=== PATIENT | male | born 1990 ===

== ENCOUNTER 2019-07-06 13:02 | Inpatient (IN) | payer SELFPAY ==
[~2019-07-06] VITALS: Ht 157.4 cm; Wt 93.0 kg
[2019-07-06] MEDS ORDERED: ACETAMINOPHEN 500 MG TAB (TYLENOL) PO ONE (13:30)
[2019-07-06] MEDS ORDERED: IBUPROFEN 800 MG (MOTRIN) TAB PO ONE (13:30)
[2019-07-06] MEDS ORDERED: LIDOCAINE 1% INJ 20 ML 20 ML VIAL INJ ONE (13:45)
[2019-07-06] MEDS ORDERED: NS IV 1000 ML 1,000 ML IV SCH (13:45)
[2019-07-06 13:53] LABS: BASOPHILS # (AUTO) 0.1 10^3/uL (0.0-0.1); BASOPHILS % (AUTO) 0 % (0-10); EOSINOPHILS % (AUTO) 0 % (0-10); HEMATOCRIT 42 % (40-54); HEMOGLOBIN 14.3 G/DL (13.3-17.7); LYMPHOCYTES # (AUTO) 2.8 X 10^3 (1.0-4.0); LYMPHOCYTES % (AUTO) 10 % (12-44); MEAN CORPUSCULAR HEMOGLOBIN 31 PG (25-34); MEAN CORPUSCULAR HGB CONC 34 G/DL (32-36); MEAN CORPUSCULAR VOLUME 91 FL (80-99); MEAN PLATELET VOLUME 11.9 FL (7.4-10.4); MONOCYTES % (AUTO) 8 % (0-12); NEUTROPHILS % (AUTO) 82 % (42-75); PLATELET COUNT 221 10^3/uL (130-400); RED CELL DISTRIBUTION WIDTH 12.8 % (10.0-14.5); WHITE BLOOD COUNT 26.9 10^3/uL (4.3-11.0)
[2019-07-06 14:00] LABS: BUN/CREATININE RATIO 11; CALCIUM 9.6 MG/DL (8.5-10.1); CARBON DIOXIDE 22 MMOL/L (21-32); CHLORIDE 101 MMOL/L (98-107); CREATININE SERUM 0.98 MG/DL (0.60-1.30); GFR ESTIMATED > 60; GLUCOSE 101 MG/DL (70-105); POTASSIUM 3.7 MMOL/L (3.6-5.0); SODIUM 135 MMOL/L (135-145)
--- NOTE | 2019-07-06 14:02 | ED General ---
General Chief Complaint: Cough/Cold/Flu Symptoms Stated Complaint: FLU LIKE SYMPTOMS Nursing Triage Note: fever and cough for two days also left elbow pain and abscess Nursing Sepsis Screen: No Definite Risk Source of Information: Patient Exam Limitations: No Limitations History of Present Illness Date Seen by Provider: Jul 06, 2019 Time Seen by Provider: 13:30 Initial Comments Otherwise healthy 28-year-old male with no local physician presents to ER with reports of high fever runny nose sore throat and body aches cough that began yesterday. He also developed some posterior left elbow swelling redness and pain yesterday. He denies any antecedent injury. He has not traveled outside the [facility]. Timing/Duration: 1-2 Days Severity: Moderate Modifying Factors: worse with Movement Associated Systoms: Cough, Fever/Chills, Headaches Allergies and Home Medications Allergies Coded Allergies: No Known Drug Allergies (Unverified , 07/06/19) Patient Home Medication List Home Medication List Reviewed: Yes Review of Systems Review of Systems Constitutional: see HPI, chills, fever, weakness EENTM: see HPI, throat pain Respiratory: see HPI, cough Cardiovascular: no symptoms reported Genitourinary: no symptoms reported Musculoskeletal: no symptoms reported Skin: see HPI Psychiatric/Neurological: No Symptoms Reported Hematologic/Lymphatic: No Symptoms Reported Immunological/Allergic: no symptoms reported Past Tczjxee-Oiavye-Sbdfnu Hx Patient Social History Recent Foreign Travel: No Contact w/Someone Who Travel: No Recent Infectious Disease Expo: No Physical Exam Vital Signs Vital Signs - First Documented 07/06/19 13:17 Temp 39.4 Pulse 109 Resp 22 B/P (MAP) 134/75 (94) Pulse Ox 96 O2 Delivery Room Air Capillary Refill : Less Than 3 Seconds Height, Weight, BMI Height: '" Weight: lbs. oz. kg; 37.00 BMI Method: General Appearance: No Apparent Distress, WD/WN Eyes: Bilateral Eye Normal Inspection, Bilateral Eye PERRL, Bilateral Eye EOMI HEENT: PERRL/EOMI, TMs Normal Neck: Full Range of Motion, Normal Inspection Respiratory: No Accessory Muscle Use, No Respiratory Distress Cardiovascular: Normal Peripheral Pulses, Tachycardia Gastrointestinal: Non Tender, Soft Extremity: Normal Capillary Refill, Normal Inspection, Other (swelling erythema and fluctuance with a small pustule to the olecranon process of the left elbow.Procedure note incision and drainage was done. Area was cleansed with chlorhexidine swabs, anesthetized locally with 2 mL of 1% lidocaine without epinephrine, incision was made with 11 blade scalpel, small amount of bloody material expressed. Culture collected and sent to lab. Covered with gauze and Coban.) Neurologic/Psychiatric: Alert, Oriented x3 Skin: Normal Color, Warm/Dry Focused Exam Lactate Level 07/06/19 13:37: Lactic Acid Level 1.04 Lactic Acid Level Progress/Results/Core Measures Suspected Sepsis Recent Fever Within 48 Hours: Yes Infection Criteria Present: None New/Unexplained Altered Menta: No Sepsis Screen: No Definite Risk SIRS Temperature: Pulse: 109 Respiratory Rate: 22 Laboratory Tests 07/06/19 13:37: White Blood Count 26.9H Blood Pressure 134 /75 Mean: 94 07/06/19 13:37: Lactic Acid Level 1.04 Laboratory Tests 07/06/19 13:37: Creatinine 0.98, Platelet Count 221 Results/Orders Lab Results Laboratory Tests Test 07/06/19 13:30 07/06/19 13:37 Range/Units Group A Streptococcus Screen NEGATIVE NEGATIVE White Blood Count 26.9 H 4.3-11.0 10^3/uL Red Blood Count 4.61 4.35-5.85 10^6/uL Hemoglobin 14.3 13.3-17.7 G/DL Hematocrit 42 40-54 % Mean Corpuscular Volume 91 80-99 FL Mean Corpuscular Hemoglobin 31 25-34 PG Mean Corpuscular Hemoglobin Concent 34 32-36 G/DL Red Cell Distribution Width 12.8 10.0-14.5 % Platelet Count 221 130-400 10^3/uL Mean Platelet Volume 11.9 H 7.4-10.4 FL Neutrophils (%) (Auto) 82 H 42-75 % Lymphocytes (%) (Auto) 10 L 12-44 % Monocytes (%) (Auto) 8 0-12 % Eosinophils (%) (Auto) 0 0-10 % Basophils (%) (Auto) 0 0-10 % Neutrophils # (Auto) 22.0 H 1.8-7.8 X 10^3 Lymphocytes # (Auto) 2.8 1.0-4.0 X 10^3 Monocytes # (Auto) 2.0 H 0.0-1.0 X 10^3 Eosinophils # (Auto) 0.0 0.0-0.3 10^3/uL Basophils # (Auto) 0.1 0.0-0.1 10^3/uL Neutrophils % (Manual) 78 % Lymphocytes % (Manual) 11 % Monocytes % (Manual) 8 % Eosinophils % (Manual) 0 % Basophils % (Manual) 0 % Band Neutrophils 3 % Blood Morphology Comment NORMAL Sodium Level 135 135-145 MMOL/L Potassium Level 3.7 3.6-5.0 MMOL/L Chloride Level 101 98-107 MMOL/L Carbon Dioxide Level 22 21-32 MMOL/L Anion Gap 12 5-14 MMOL/L Blood Urea Nitrogen 11 7-18 MG/DL Creatinine 0.98 0.60-1.30 MG/DL Estimat Glomerular Filtration Rate > 60 BUN/Creatinine Ratio 11 Glucose Level 101 70-105 MG/DL Lactic Acid Level 1.04 0.50-2.00 MMOL/L Calcium Level 9.6 8.5-10.1 MG/DL Micro Results Microbiology 07/06/19 Influenza Types A,B Antigen (TORIBIO) - Final, Complete My Orders Orders - KOTA GREENE COMPOSITE BOND TECHNICIAN Cbc With Automated Diff (07/06/19 13:25) Basic Metabolic Panel (07/06/19 13:25) Influenza A And B Antigens (07/06/19 13:25) Ibuprofen Tablet (Motrin Tablet) (07/06/19 13:30) Acetaminophen Tablet (Tylenol Tablet) (07/06/19 13:30) Chest 1 View, Ap/Pa Only (07/06/19 13:26) Rapid Strep A Screen (07/06/19 13:26) Lidocaine 1% Inj 20 Ml (Xylocaine 1% Inj (07/06/19 13:45) Wound Culture (07/06/19 13:32) Ns Iv 1000 Ml (Sodium Chloride 0.9%) (07/06/19 13:45) Lactic Acid Analyzer (07/06/19 13:39) Manual Differential (07/06/19 13:37) Fentanyl Injection (Sublimaze Injection (07/06/19 14:15) Blood Culture (07/06/19 14:05) Cefazolin 2 Gm/50 Ml Ns (Ancef 2 Gm/50 M (07/06/19 14:30) Medications Given in ED Current Medications Medications Dose Ordered Sig/Gloria Route Start Time Stop Time Status Last Admin Dose Admin Acetaminophen 1,000 mg ONCE ONCE PO 07/06/19 13:30 07/06/19 13:31 DC 07/06/19 13:40 1,000 MG Cefazolin Sodium 50 ml @ 100 mls/hr ONCE ONCE IV 07/06/19 14:30 07/06/19 14:59 DC 07/06/19 15:01 100 MLS/HR Fentanyl Citrate 50 mcg ONCE ONCE IVP 07/06/19 14:15 07/06/19 14:16 DC 07/06/19 14:19 50 MCG Ibuprofen 800 mg ONCE ONCE PO 07/06/19 13:30 07/06/19 13:31 DC 07/06/19 13:40 800 MG Lidocaine HCl 20 ml ONCE ONCE INJ 07/06/19 13:45 07/06/19 13:46 DC 07/06/19 13:46 20 ML Vital Signs/I&O 07/06/19 07/06/19 07/06/19 07/06/19 13:17 13:37 13:40 13:40 Temp 39.4 39.4 39.4 Pulse 109 Resp 22 B/P (MAP) 134/75 (94) Pulse Ox 96 O2 Delivery Room Air Room Air 07/06/19 07/06/19 07/06/19 07/06/19 14:30 15:45 16:12 16:13 Temp 39.4 38.3 37.2 37.2 Pulse 109 84 84 84 Resp 22 22 20 20 B/P (MAP) 134/75 114/61 (94) 110/69 (83) 110/69 Pulse Ox 96 96 99 99 O2 Delivery Room Air Room Air Room Air Capillary Refill : Less Than 3 Seconds Blood Pressure Mean: 94 Diagnostic Imaging Diagonstic Imaging: CT Comments NAME: LOUISE JENNINGS [facility] REC#: [id number] PT STATUS: REG ER : 1990 PHYSICIAN: KOTA GREENE APRN ADMIT DATE: 07/06/19/ER Draft Date of Exam:07/06/19 CHEST 1 VIEW, AP/PA ONLY INDICATION: Fever and cough COMPARISON: None FINDINGS: Single frontal view of the chest demonstrates normal heart size and pulmonary vascularity. The lungs show low inspiratory volumes, but are otherwise clear. No large pleural effusion or pneumothorax is seen. The visualized osseous structures show no acute abnormalities. IMPRESSION: 1. Low lung volumes, but otherwise no acute cardiopulmonary process. Dictated on workstation # [id number] Dict: 07/06/19 1412 Trans: 07/06/19 1414 [facility] [id number] Interpreted by: JAYLENE COLIN MD Electronically signed by: Departure Communication (Admissions) Time/Spoke to Admitting Phy: 14:[address] jones, we'll admit and consult Dr. Rodriguez. I spoke with Dr. Johnson, agrees to consult. Impression Primary Impression: Cellulitis of left elbow Additional Impressions: Influenza-like symptoms Sepsis Disposition: ADMITTED INPATIENT Condition: Stable Admissions Decision to Admit Reason: Admit from ER (General) Decision to Admit/Date: Jul 06, 2019 Time/Decision to Admit Time: 14:14 KOTA GREENE APRN Jul 06, 2019 14:02
--- NOTE | 2019-07-06 14:14 | Diagnostic Imaging Report ---
INDICATION: Fever and cough COMPARISON: None FINDINGS: Single frontal view of the chest demonstrates normal heart size and pulmonary vascularity. The lungs show low inspiratory volumes, but are otherwise clear. No large pleural effusion or pneumothorax is seen. The visualized osseous structures show no acute abnormalities. IMPRESSION: 1. Low lung volumes, but otherwise no acute cardiopulmonary process. Dictated by: Dictated on workstation # [id number]
[2019-07-06] MEDS ORDERED: fentaNYL INJECTION 100 MCG/2 ML AMP IVP ONE (14:15)
[2019-07-06 14:17] LABS: BAND NEUTROPHILS 3 %; BASOPHILS % (MANUAL) 0 %; EOSINOPHILS % (MANUAL) 0 %; LYMPHOCYTES % (MANUAL) 11 %; MONOCYTES % (MANUAL) 8 %; NEUTROPHILS % (MANUAL) 78 %; RBC MORPH NORMAL
[2019-07-06] MEDS ORDERED: ceFAZolin 2 GM/50 ML NS 50 ML IV ONE (14:30)
--- NOTE | 2019-07-06 15:53 | NUR ---
LOUISE JENNINGS admitted to room 432-1, with an admitting diagnosis of CELLULITIS OF THE LEFT ELBOW AND SEPSIS, on 07/06/19 from ER via W//C, accompanied by ED PCT. LOUISE JENNINGS introduced to surroundings, call light, bed controls, phone, TV, temperature control, lights, meal times, smoking policy, visitor policy, side rail policy, bathrooms and showers. Patient Rights given to patient in the handbook. LOUISE JENNINGS verbalizes understanding that [facility] is not responsible for the loss or damage to any personal effects or valuables that are kept in the patients posession during their hospitalization. LOUISE JENNINGS verbalizes understanding of Interdisciplinary Patient Education. Patient and/or family were informed about the Rapid Response Team and its purpose.
--- NOTE | 2019-07-06 15:53 | NUR ---
PATIENT TO FLOOR AT THIS TIME VIA W/C ACCOMPANIED BY ED PCT.
[2019-07-06 16:12] VITALS: BP 110/69
[2019-07-06 16:13] VITALS: BP 110/69
--- NOTE | 2019-07-06 16:17 | NUR ---
CR 0.98; CR CL > 80; WT 93 KG; VANCO 2000 MG IV BOLUS THEN 1250 MG IV Q12H; TROUGH AFTER 3RD DOSE
--- NOTE | 2019-07-06 16:28 | Progress Note ---
Standard Progress Note Progress Notes/Assess & Plan Date Seen by a Provider: Jul 06, 2019 Time Seen by a Provider: 16:27 Progress/Assessment & Plan patient seen and examined consult dictated findings c/w left olecranon septic bursitis rec abx no need for surgical intervention currently Focused Exam Lactate Level 07/06/19 13:37: Lactic Acid Level 1.04 Lactic Acid Level Laboratory Tests Test 07/06/19 13:37 Lactic Acid Level 1.04 MMOL/L (0.50-2.00) HELENA PEREZ MD Jul 06, 2019 16:28
[2019-07-06] MEDS ORDERED: VANCOMYCIN 2000 MG/NS 500 ML IVPB IV NR ×2 (16:30)
[2019-07-06] MEDS ORDERED: ONDANSETRON 4 MG/2 ML (SDV) Z0FRAN IV PRN (16:30)
[2019-07-06] MEDS: NS IV 1000 ML 1,000 ML IV SCH (16:53)
--- NOTE | 2019-07-06 18:44 | CONSULTATION REPORT ---
DATE OF SERVICE: REASON FOR CONSULTATION: Left olecranon bursitis. HISTORY OF PRESENT ILLNESS: The patient is a 28-year-old right hand dominant gentleman who has been having systemic illness and noticed yesterday that he had some redness in the posterior aspect of his left elbow. 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 He was found in the Emergency Department today to have findings consistent with septic bursitis. This underwent local irrigation and drainage and cultures were obtained. He was started on vancomycin and Ancef. He denies prior similar episodes. He reports posterior pain. He reports it is better since the time of the incision and drainage in the Emergency Department. PHYSICAL EXAMINATION: The left elbow demonstrates near full range of motion actively with only pain elicited posteriorly. He has no pain with supination and pronation of the forearm. There is at the olecranon area erythema, no purulence was expressed. There is some fluctuance noted. No elbow effusion is noted. IMPRESSION: Left elbow septic olecranon bursitis. PLAN: Antibiotics. This will typically respond to antibiotics without requiring formal surgical irrigation and debridement. We will follow while admitted. Thank you for the consultation. Job ID: [id number] DocumentID: [id number] Dictated Date: 07/06/2019 16:26:13 Home Stereo Equipment Installer Date: 07/06/2019 18:43:55 Dictated By: HELENA PEREZ MD
[2019-07-06] MEDS ORDERED: diphenhydrAMINE 25 MG TAB (BENADRYL) PO PRN (19:45)
[2019-07-06 20:00] VITALS: BP 115/71
[2019-07-06] MEDS: ACETAMINOPHEN 325 MG TABLET PO PRN (20:00)
--- NOTE | 2019-07-06 20:00 | NUR ---
PT CALLED TO THE ROOM AND C/O ITCHINESS IN THE FACE, BACK OF THE HEAD AND "FEEL LIKE MY LIPS ARE SWELLING." REDNESS NOTICED IN FOREHEAD AND A LITTLE BIT OF SWELLING ON THE BOTTOM LIP. VS WITHIN NORMAL LIMITS. SEE VITAL SIGNS HX. DR CUETO NOTIFIED AND NEW ORDERS RECEIVED TO HOLD VANCOMYCIN AND TO GIVE BENADRYL 25 MG PO NOW.
[2019-07-06] MEDS: ceFAZolin 2 GM/NS 50 ML (COMPOUNDED) IV SCH (22:33)
[2019-07-06] MEDS: IBUPROFEN 800 MG (MOTRIN) TAB PO PRN (22:35)
[2019-07-07 00:05] VITALS: BP 116/75
[2019-07-07] MEDS: NS IV 1000 ML 1,000 ML IV SCH ×3 (03:13→19:34)
[2019-07-07 04:00] VITALS: BP 119/72
[2019-07-07 04:42] LABS: BASOPHILS % (AUTO) 0 % (0-10); EOSINOPHILS # (AUTO) 0.4 10^3/uL (0.0-0.3); EOSINOPHILS % (AUTO) 1 % (0-10); HEMATOCRIT 40 % (40-54); HEMOGLOBIN 13.2 G/DL (13.3-17.7); LYMPHOCYTES # (AUTO) 1.7 X 10^3 (1.0-4.0); LYMPHOCYTES % (AUTO) 6 % (12-44); MEAN CORPUSCULAR HEMOGLOBIN 31 PG (25-34); MEAN CORPUSCULAR HGB CONC 33 G/DL (32-36); MEAN CORPUSCULAR VOLUME 93 FL (80-99); MONOCYTES # (AUTO) 1.1 X 10^3 (0.0-1.0); MONOCYTES % (AUTO) 4 % (0-12); NEUTROPHILS # (AUTO) 24.1 X 10^3 (1.8-7.8); NEUTROPHILS % (AUTO) 88 % (42-75); PLATELET COUNT 174 10^3/uL (130-400); RED CELL DISTRIBUTION WIDTH 13.2 % (10.0-14.5); WHITE BLOOD COUNT 27.3 10^3/uL (4.3-11.0)
[2019-07-07 05:00] LABS: ALANINE AMINOTRANSFERASE 97 U/L (0-55); ALBUMIN 3.7 GM/DL (3.2-4.5); ALKALINE PHOSPHATASE 79 U/L (40-136); BILIRUBIN,TOTAL 1.5 MG/DL (0.1-1.0); BUN/CREATININE RATIO 11; CALCIUM 8.8 MG/DL (8.5-10.1); CARBON DIOXIDE 19 MMOL/L (21-32); CHLORIDE 109 MMOL/L (98-107); CREATININE SERUM 0.79 MG/DL (0.60-1.30); GFR ESTIMATED > 60; GLUCOSE 96 MG/DL (70-105); POTASSIUM 3.6 MMOL/L (3.6-5.0); SODIUM 139 MMOL/L (135-145); TOTAL PROTEIN 6.7 GM/DL (6.4-8.2)
[2019-07-07] MEDS ORDERED: VANCOMYCIN 1250 MG/NS 250 ML IVPB IV SCH ×2 (05:00)
[2019-07-07] MEDS: ceFAZolin 2 GM/NS 50 ML (COMPOUNDED) IV SCH ×3 (06:43→22:59)
--- NOTE | 2019-07-07 07:43 | Diagnostic Imaging Report ---
EXAM: CHEST 1 VIEW, AP/PA ONLY INDICATION: Sepsis. COMPARISON: 07/06/2019. FINDINGS: Normal heart size and central pulmonary vascularity. Low lung volumes with perihilar atelectasis. No pleural effusion or pneumothorax. No acute osseous findings. No significant change. IMPRESSION: Low lung volumes with perihilar atelectasis. Chest otherwise unremarkable. Dictated by: Dictated on workstation # [id number]
[2019-07-07 08:00] VITALS: BP 121/80
[2019-07-07] MEDS: ACETAMINOPHEN 325 MG TABLET PO PRN ×2 (09:24→20:51)
[2019-07-07] MEDS: IBUPROFEN 800 MG (MOTRIN) TAB PO PRN ×2 (11:12→19:35)
[2019-07-07 12:00] VITALS: BP 114/58
[2019-07-07] MEDS: HYDROcodone/APAP 5 MG/325 MG (LORTAB) TAB PO PRN (13:19)
--- NOTE | 2019-07-07 13:53 | Progress Note ---
Standard Progress Note Progress Notes/Assess & Plan Date Seen by a Provider: Jul 07, 2019 Time Seen by a Provider: 13:52 Progress/Assessment & Plan patient seen and examined consult dictated findings c/w left olecranon septic bursitis rec abx no need for surgical intervention currently Final Diagnosis feeling better cxs--MSSA Vanco DCed L elbow with less fluctuance at bursa ROM improved resolving septic olecranon bursitis cont abx Focused Exam Lactate Level 07/06/19 13:37: Lactic Acid Level 1.04 HELENA PEREZ MD Jul 07, 2019 13:53
--- NOTE | 2019-07-07 14:55 | History & Physical-Hospitalist ---
History of Present Illness HPI/Chief Complaint Pt is a 27yoCM who presented to the ER due to fever and cough. He was found to have a left olecranon bursitis and this was drain in the ER. He reports that he is feeling better today but still having fevers. He still have pain in his elbow but this has improved as well. Date Seen 07/07/19 Time Seen by a Provider: 11:30 Attending Physician Maye Bahena MD PCP No,Local Physician Referring Physician Date of Admission Jul 06, 2019 at 14:30 Home Medications & Allergies Home Medications Reviewed patient Home Medication Reconciliation performed by pharmacy medication reconciliations photo equipment technician and/or nursing. Patients Allergies have been reviewed. Allergies Allergies Coded Allergies No Known Drug Allergies (Unverified07/06/19) Past Ebuulsb-Sagbvb-Hzclro Hx Past Med/Social Hx: Reviewed Nursing Past Med/Soc Hx Patient Social History Alcohol Use: Denies Use Recreational Drug Use: No Smoking Status: Unknown if Ever Smoked Recent Foreign Travel: No Contact w/other who traveled: No Recent Infectious Disease Expo: No Family History Reviewed Nursing Family Hx Patient reports no known family medical history. Review of Systems Constitutional: fever Respiratory: cough; No hemoptysis, No phlegm Cardiovascular: No chest pain Gastrointestinal: No abdominal pain, No constipation, No diarrhea, No nausea, No vomiting Musculoskeletal: see HPI Skin: no symptoms reported Psychiatric/Neurological: No Symptoms Reported Physical Exam Physical Exam Vital Signs Vital Signs - First Documented 07/06/19 13:17 Temp 39.4 Pulse 109 Resp 22 B/P (MAP) 134/75 (94) Pulse Ox 96 O2 Delivery Room Air Capillary Refill : Less Than 3 Seconds Height, Weight, BMI Height: '" Weight: lbs. oz. kg; 37.53 BMI Method: General Appearance: No Apparent Distress, WD/WN, Obese HEENT: Moist Mucous Membranes; No Scleral Icterus (L), No Scleral Icterus (R) Neck: Normal Inspection, Supple Respiratory: Lungs Clear, No Accessory Muscle Use, No Respiratory Distress Cardiovascular: Regular Rate, Rhythm, No Murmur Gastrointestinal: Normal Bowel Sounds, Non Tender, Soft Extremity: No Calf Tenderness, No Pedal Edema, Swelling (of left elbow, no drainage, erythema noted slightly outside of demarcation) Neurologic/Psychiatric: Alert, Oriented x3, Normal Mood/Affect Results Results/Procedures Labs Laboratory Tests 07/09/19 06:40 07/10/19 05:27 Patient resulted labs reviewed. Imaging: Reviewed Imaging Report Imaging Date of Exam:07/07/19 CHEST 1 VIEW, AP/PA ONLY EXAM: CHEST 1 VIEW, AP/PA ONLY INDICATION: Sepsis. COMPARISON: 07/06/2019. FINDINGS: Normal heart size and central pulmonary vascularity. Low lung volumes with perihilar atelectasis. No pleural effusion or pneumothorax. No acute osseous findings. No significant change. IMPRESSION: Low lung volumes with perihilar atelectasis. Chest otherwise unremarkable. Assessment/Plan Admission Diagnosis Sepsis Admission Status: Inpatient Order (span 2 midnights) Reason for Inpatient Admission: Needs IV abx Assessment and Plan Sepsis Septic olecranon bursitis Fever curve trending down Continue Rocephin Vanc DC-ed due to reaction overnight Cultures growing staph and strep- awaiting sensitivities but presumptive MSSA Diagnosis/Problems Diagnosis/Problems (1) Sepsis Status: Acute Qualifiers: Sepsis type: methicillin susceptible Staphylococcus aureus Sepsis acute organ dysfunction status: without acute organ dysfunction Qualified Codes: A41.01 - Sepsis due to methicillin susceptible Staphylococcus aureus (2) Cellulitis of left elbow Status: Acute Clinical Quality Measures DVT/VTE Risk/Contraindication: Risk Factor Score Per Nursin RFS Level Per Nursing on Admit: 4+=Very High MAYE BAHENA MD Jul 07, 2019 14:55
[2019-07-07] MEDS: ENOXAPARIN 40 MG/0.4 ML (LOVENOX) SYR SQ SCH (15:45)
[2019-07-07 15:47] VITALS: BP 114/61
[2019-07-07] MEDS: CHLORASEPTIC LOZENGE MM PRN (19:35)
[2019-07-07 19:46] VITALS: BP 125/74
[2019-07-07] MEDS ORDERED: KETOROLAC 30 MG/ML VIAL IVP ONE (22:30)
[2019-07-08 00:45] VITALS: BP 115/66
[2019-07-08] MEDS ORDERED: TROUGH ORDER-PHARMACY XX NR (04:00)
[2019-07-08 04:31] VITALS: BP 100/65
[2019-07-08] MEDS: NS IV 1000 ML 1,000 ML IV SCH (05:31)
[2019-07-08] MEDS: ceFAZolin 2 GM/NS 50 ML (COMPOUNDED) IV SCH (06:02)
[2019-07-08] MEDS: HYDROcodone/APAP 5 MG/325 MG (LORTAB) TAB PO PRN (06:03)
[2019-07-08 06:57] LABS: HEMOGLOBIN 12.1 G/DL (13.3-17.7); MEAN PLATELET VOLUME 12.2 FL (7.4-10.4); RED CELL DISTRIBUTION WIDTH 13.3 % (10.0-14.5); WHITE BLOOD COUNT 24.7 10^3/uL (4.3-11.0)
[2019-07-08 07:16] LABS: BUN/CREATININE RATIO 9; CALCIUM 8.6 MG/DL (8.5-10.1); CARBON DIOXIDE 19 MMOL/L (21-32); CHLORIDE 108 MMOL/L (98-107); CREATININE SERUM 0.78 MG/DL (0.60-1.30); GFR ESTIMATED > 60; GLUCOSE 99 MG/DL (70-105); POTASSIUM 3.7 MMOL/L (3.6-5.0); SODIUM 137 MMOL/L (135-145)
--- NOTE | 2019-07-08 07:58 | Progress Note ---
Standard Progress Note Progress Notes/Assess & Plan Date Seen by a Provider: Jul 08, 2019 Time Seen by a Provider: 07:57 Progress/Assessment & Plan patient seen and examined consult dictated findings c/w left olecranon septic bursitis rec abx no need for surgical intervention currently Final Diagnosis feeeling better, but reports increased erythema currently afebrile Laboratory Tests Test 07/08/19 06:37 Range/Units White Blood Count 24.7 H 4.3-11.0 10^3/uL Red Blood Count 3.97 L 4.35-5.85 10^6/uL Hemoglobin 12.1 L 13.3-17.7 G/DL Hematocrit 37 L 40-54 % Mean Corpuscular Volume 94 80-99 FL Mean Corpuscular Hemoglobin 30 25-34 PG Mean Corpuscular Hemoglobin Concent 32 32-36 G/DL Red Cell Distribution Width 13.3 10.0-14.5 % Platelet Count 155 130-400 10^3/uL Mean Platelet Volume 12.2 H 7.4-10.4 FL Sodium Level 137 135-145 MMOL/L Potassium Level 3.7 3.6-5.0 MMOL/L Chloride Level 108 H 98-107 MMOL/L Carbon Dioxide Level 19 L 21-32 MMOL/L Anion Gap 10 5-14 MMOL/L Blood Urea Nitrogen 7 7-18 MG/DL Creatinine 0.78 0.60-1.30 MG/DL Estimat Glomerular Filtration Rate > 60 BUN/Creatinine Ratio 9 Glucose Level 99 70-105 MG/DL Calcium Level 8.6 8.5-10.1 MG/DL Left elbow without fluctuance but increased erythema. ROM unchanged imp--cellulitis left elbow continue abx. no need for operative intervention currently Focused Exam Lactate Level 07/06/19 13:37: Lactic Acid Level 1.04 HELENA PEREZ MD Jul 08, 2019 07:58
[2019-07-08 08:00] VITALS: BP 120/75
[2019-07-08] MEDS: IBUPROFEN 800 MG (MOTRIN) TAB PO PRN ×2 (09:24→21:42)
[2019-07-08] MEDS: CHLORASEPTIC LOZENGE MM PRN (10:36)
--- NOTE | 2019-07-08 11:59 | Progress Note - Hospitalist ---
Subjective HPI/CC On Admission Date Seen by Provider: Jul 08, 2019 Time Seen by Provider: 11:56 Pt is a 27yoCM who presented to the ER due to fever and cough. He was found to have a left olecranon bursitis and this was drain in the ER. He reports that he is feeling better today but still having fevers. He still have pain in his elbow but this has improved as well. Subjective/Events-last exam Pt reports feeling about the same. Fever overnight. Erythema worsening. Plan to change antibiotics. Focused Exam Lactate Level 07/06/19 13:37: Lactic Acid Level 1.04 Objective Exam Vital Signs Vital Signs Date Time Temp Pulse Resp B/P (MAP) Pulse Ox O2 Delivery O2 Flow Rate FiO2 07/08/19 10:40 37.8 07/08/19 09:00 99 Room Air 07/08/19 08:00 74 20 120/75 (90) Capillary Refill : Less Than 3 Seconds General Appearance: No Apparent Distress, WD/WN, Obese Respiratory: No Accessory Muscle Use, No Respiratory Distress Extremity: Other (left elbow with worsening erythema and warmth) Neurologic/Psychiatric: Alert, Oriented x3, Normal Mood/Affect Results/Procedures Lab Laboratory Tests 07/08/19 06:37 Patient resulted labs reviewed. Imaging: Reviewed Imaging Report Assessment/Plan Assessment and Plan Assess & Plan/Chief Complaint Sepsis Septic olecranon bursitis Still having fevers Change from ancef to Rocephin given clinical presentation Cultures growing staph and strep- awaiting sensitivities but presumptive MSSA Ortho consulted, appreciate recs Diagnosis/Problems Diagnosis/Problems (1) Sepsis Status: Acute Qualifiers: Sepsis type: methicillin susceptible Staphylococcus aureus Sepsis acute organ dysfunction status: without acute organ dysfunction Qualified Codes: A41.01 - Sepsis due to methicillin susceptible Staphylococcus aureus (2) Cellulitis of left elbow Status: Acute Clinical Quality Measures DVT/VTE Risk/Contraindication: Risk Factor Score Per Nursin RFS Level Per Nursing on Admit: 4+=Very High MAYE LOPEZ MD Jul 08, 2019 11:59
[2019-07-08 12:00] VITALS: BP 106/65
[2019-07-08] MEDS: cefTRIAXone FOR IV USE 2,000 MG in WATER (STERILE) FOR INJECTION 20 ML IV SCH (12:28)
[2019-07-08] MEDS: ENOXAPARIN 40 MG/0.4 ML (LOVENOX) SYR SQ SCH (14:53)
[2019-07-08] MEDS ORDERED: ceFAZolin 2 GM IV Premixed 50 ML IV SCH (15:00)
--- OUTSIDE RECORDS SUMMARY | 2019-07-08 16:39 | XMS REPORT | Continuity of Care Document ---
Author Organization Unknown Address Unknown Phone Unavailable Allergies Active Description Code Type Severity Reaction Onset Reported/Identified Relationship to Patient Clinical Status Yes No Known Drug Allergies [id number] Drug Allergy Unknown N/A 07/06/2019 Medications There is no data. Problems Date Dx Coded Attending Type Code Diagnosis Diagnosed By 07/07/2019 MAYE LOPEZ MD, Ot A41. 9 SEPSIS, UNSPECIFIED ORGANISM 07/07/2019 MAYE LOPEZ MD Ot M71.022 ABSCESS OF BURSA, LEFT ELBOW 07/07/2019 MAYE LOPEZ MD Ot M71.122 OTHER INFECTIVE BURSITIS, LEFT ELBOW 07/07/2019 MAYE LOPEZ MD Ot R05 COUGH 07/07/2019 MAYE LOPEZ MD, Ot A41. 9 SEPSIS, UNSPECIFIED ORGANISM 07/07/2019 MAYE LOPEZ MD Ot M71.022 ABSCESS OF BURSA, LEFT ELBOW 07/07/2019 MAYE LOPEZ MD Ot M71.122 OTHER INFECTIVE BURSITIS, LEFT ELBOW 07/07/2019 MAYE LOPEZ MD Ot R05 COUGH Procedures Code Description Performed By Per formed On [id number] DR WOOD OF LEFT ELBOW BURSA AND LIGAMEN 07/06/2019 Results Test Result Range Streptococcus pyogenes antigen detection - 07/06/19 13:30 Streptococcus pyogenes antigen detection NEGATIVE NEGATIVE Influenza virus A and B antigen detectio n - 07/06/19 13:30 FLU RESULT NEGATIVE FOR INFLUENZA A AND B ANTIGENS BY IA NRG Bacterial throat culture - 07/06/19 13:3 0 Bacterial throat culture [id number] NRG FREE TEXT EXTERNAL PLUS NORMAL RUPERTO NR G QUANTITY OF GROWTH Scant Growth NRG Complete blood count (CBC) with automate d white blood cell (WBC) differential - 07/06/19 13:37 Blood leukocytes automated count (number/volume) 26.9 10*3/uL 4.3-11.0 Blood erythrocytes automated count (number/volume) 4.61 10*6/uL 4.35-5.85 Venous blood hemoglobin measurement (mass/volume) 14.3 g/dL 13.3-17.7 Blood hematocrit (volume fraction) 42 % 40-54 Automated erythrocyte mean corpuscular volume 91 [ foz_us] 80-99 Automated erythrocyte mean corpuscular h emoglobin (mass per erythrocyte) 31 pg 25-34 Automated erythrocyte mean corpuscular h emoglobin concentration measurement (mass/volume) 34 g/dL 32-36 Automated erythrocyte distribution width ratio 12. 8 % 10.0- 14.5 Automated blood platelet count (count/volume) 221 10*3/uL 130-400 Automated blood platelet mean volume measurement 11.9 [foz_us] 7.4-10.4 Automated blood neutrophils/100 leukocytes 82 % 42-75 Automated blood lymphocytes/100 leukocytes 10 % 12-44 Blood monocytes/100 leukocytes 8 % 0-12 Automated blood eosinophils/100 leukocytes 0 % 0-10 Automated blood basophils/100 leukocytes 0 % 0-10 Blood neutrophils automated count (number/volume) 22.0 10*3 1.8-7.8 Blood lymphocytes automated count (number/volume) 2.8 10*3 1.0-4.0 Blood monocytes automated count (number/volume) 2. 0 10*3 0.0-1.0 Automated eosinophil count 0.0 10*3/uL 0 .0-0.3 Automated blood basophil count (count/volume) 0.1 10*3/uL 0.0-0.1 Blood lactic acid measurement (moles/vol ume) - 07/06/19 13:37 Blood lactic acid measurement (moles/volume) 1.04 mmol/L 0.50-2.00 Whole blood basic metabolic panel - 06/26 13:37 Serum or plasma sodium measurement (moles/volume) 135 mmol/L 135-145 Serum or plasma potassium measurement (moles/volume) 3.7 mmol/L 3.6-5.0 Serum or plasma chloride measurement (moles/volume) 101 mmol/L 98-107 Carbon dioxide 22 mmol/L 21-32 Serum or plasma anion gap determination (moles/volume) 12 mmol/L 5-14 Serum or plasma urea nitrogen measurement (mass/volume ) 11 mg/dL 7-18 Serum or plasma creatinine measurement (mass/volume) 0.98 mg/dL 0.60-1.30 Serum or plasma urea nitrogen/creatinine mass ratio 11 NRG Serum or plasma creatinine measurement w ith calculation of estimated glomerular filtration rate > NRG Serum or plasma glucose measurement (mass/volume) 101 mg/dL 70-105 Serum or plasma calcium measurement (mass/volume) 9.6 mg/dL 8.5-10.1 Manual absolute plasma cell count - 06/26 13:37 Blood monocytes/100 leukocytes 8 % NRG Manual blood segmented neutrophils/100 leukocytes 78 % NRG Blood band neutrophils/100 leukocytes 3 % NRG Manual blood lymphocytes/100 leukocytes 11 % NRG Manual eosinophils/100 leukocytes in nose 0 % NRG Manual blood basophils/100 leukocytes 0 % NRG Blood erythrocyte morphology finding identification NORMAL NRG Bacterial blood culture - 07/06/19 13:37 Bacterial blood culture NG NRG Gram stain microscopy - 07/06/19 13:52 Gram stain microscopy Moderate Gram positive cocci NRG Bacteria identification in wound by cult ure - 07/06/19 13:52 Bacteria identification in wound by culture [id number] NRG FREE TEXT EXTERNAL SUSCEPTIBILITY REPORTED 07/08/19 10:30 NRG QUANTITY OF GROWTH Moderate Growth NRG FREE TEXT ENTRY 2 PRELIM RAPID ID TEST AT [facility] 07/06 07:30 NRG FREE TEXT ENTRY 3 RML CONFIRMED ID 07/06 17:05 NRG FREE TEXT ENTRY 4 SEE COMMENTS NRG Dirithromycin susceptibility test by dis k diffusion - 07/06/19 13:52 Oxacillin susceptibility test by minimum inhibitory co ncentration 0.5 NRG Clindamycin susceptibility test by minimum inhibitory concentration <= NRG Erythromycin susceptibility test by minimum inhibitory concentration <= NRG Trimethoprim/sulfamethoxazole susceptibi lity test by minimum inhibitoryconcentration <= NRG Vancomycin susceptibility test by minimum inhibitory c oncentration 1 NRG Levofloxacin susceptibility test by minimum inhibitory concentration <= NRG Rifampin susceptibility test by minimum inhibitory con centration <= NRG Cefazolin susceptibility test by minimum inhibitory co ncentration <= NRG Linezolid susceptibility test by minimum inhibitory co ncentration 2 NRG Penicillin G susceptibility test by minimum inhibitory concentration > NRG Moxifloxacin susceptibility test by minimum inhibitory concentration <= NRG Minocycline susc TORIBIO <= NRG Bacterial blood culture - 07/06/19 14:26 Bacterial blood culture NG NRG Complete blood count (CBC) with automate d white blood cell (WBC) differential - 07/07/19 04:35 Blood leukocytes automated count (number/volume) 27.3 10*3/uL 4.3-11.0 Blood erythrocytes automated count (number/volume) 4.33 10*6/uL 4.35-5.85 Venous blood hemoglobin measurement (mass/volume) 13.2 g/dL 13.3-17.7 Blood hematocrit (volume fraction) 40 % 40-54 Automated erythrocyte mean corpuscular volume 93 [ foz_us] 80-99 Automated erythrocyte mean corpuscular h emoglobin (mass per erythrocyte) 31 pg 25-34 Automated erythrocyte mean corpuscular h emoglobin concentration measurement (mass/volume) 33 g/dL 32-36 Automated erythrocyte distribution width ratio 13. 2 % 10.0- 14.5 Automated blood platelet count (count/volume) 174 10*3/uL 130-400 Automated blood platelet mean volume measurement 12.0 [foz_us] 7.4-10.4 Automated blood neutrophils/100 leukocytes 88 % 42-75 Automated blood lymphocytes/100 leukocytes 6 % 12-44 Blood monocytes/100 leukocytes 4 % 0-12 Automated blood eosinophils/100 leukocytes 1 % 0-10 Automated blood basophils/100 leukocytes 0 % 0-10 Blood neutrophils automated count (number/volume) 24.1 10*3 1.8-7.8 Blood lymphocytes automated count (number/volume) 1.7 10*3 1.0-4.0 Blood monocytes automated count (number/volume) 1. 1 10*3 0.0-1.0 Automated eosinophil count 0.4 10*3/uL 0 .0-0.3 Automated blood basophil count (count/volume) 0.0 10*3/uL 0.0-0.1 Comprehensive metabolic panel - 07/07/19 04:35 Serum or plasma sodium measurement (moles/volume) 139 mmol/L 135-145 Serum or plasma potassium measurement (moles/volume) 3.6 mmol/L 3.6-5.0 Serum or plasma chloride measurement (moles/volume) 109 mmol/L 98-107 Carbon dioxide 19 mmol/L 21-32 Serum or plasma anion gap determination (moles/volume) 11 mmol/L 5-14 Serum or plasma urea nitrogen measurement (mass/volume ) 9 mg/dL 7-18 Serum or plasma creatinine measurement (mass/volume) 0.79 mg/dL 0.60-1.30 Serum or plasma urea nitrogen/creatinine mass ratio 11 NRG Serum or plasma creatinine measurement w ith calculation of estimated glomerular filtration rate > NRG Serum or plasma glucose measurement (mass/volume) 96 mg/dL 70-105 Serum or plasma calcium measurement (mass/volume) 8.8 mg/dL 8.5-10.1 Serum or plasma total bilirubin measurement (mass/volu me) 1.5 mg/dL 0.1-1.0 Serum or plasma alkaline phosphatase stewart surement (enzymatic activity/volume) 79 U/L 40-136 Serum or plasma aspartate aminotransfera se measurement (enzymatic activity/volume) 49 U/L 5-34 Serum or plasma alanine aminotransferase measurement (enzymatic activity/volume) 97 U/L 0-55 Serum or plasma protein measurement (mass/volume) 6.7 g/dL 6.4-8.2 Serum or plasma albumin measurement (mass/volume) 3.7 g/dL 3.2-4.5 CALCIUM CORRECTED 9.0 mg/dL 8.5-10.1 Encounters ACCT No. Visit Date/Time Discharge Status Pt. Type Provider Facility Loc./Unit Complaint [id number] 07/06/2019 14:30:[address] Inpatient JOHN NEVES, MAYE [place] [facility] 4TH CELLULITIS L ELBOW,SEPSIS,FL U LIKE ILLNESS
[2019-07-08 16:41] VITALS: BP 116/56
[2019-07-08] MEDS: ACETAMINOPHEN 325 MG TABLET PO PRN (17:54)
--- NOTE | 2019-07-08 18:24 | NUR ---
INCREASED REDNESS/SWELLING NOTED TO LEFT ARM, AREA MARKED. PT TEMP 38.7. DR LOPEZ NOTIFIED VIA PHONE. NO NEW ORDERS RECEIVED.
[2019-07-08 19:23] VITALS: BP 114/57
--- OUTSIDE RECORDS SUMMARY | 2019-07-08 19:51 | XMS REPORT | Continuity of Care Document ---
Author Organization Unknown Address Unknown Phone Unavailable Allergies Active Description Code Type Severity Reaction Onset Reported/Identified Relationship to Patient Clinical Status Yes No Known Drug Allergies [id number] Drug Allergy Unknown N/A 07/06/2019 Medications There is no data. Problems Date Dx Coded Attending Type Code Diagnosis Diagnosed By 07/07/2019 JOHN NEVES, MAYE [place] Ot A41. 9 SEPSIS, UNSPECIFIED ORGANISM 07/07/2019 JOHN NEVES, MAYE [place] Ot M71.022 ABSCESS OF BURSA, LEFT ELBOW 07/07/2019 MAYE LOPEZ MD Ot M71.122 OTHER INFECTIVE BURSITIS, LEFT ELBOW 07/07/2019 MAYE LOPEZ MD Ot R05 COUGH 07/07/2019 MAYE LOPEZ MD Ot A41. 9 SEPSIS, UNSPECIFIED ORGANISM 07/07/2019 JOHN NEVES, MAYE [place] Ot M71.022 ABSCESS OF BURSA, LEFT ELBOW 07/07/2019 JOHN NEVES, MAYE M Ot M71.122 OTHER INFECTIVE BURSITIS, LEFT ELBOW 07/07/2019 MAYE LOPEZ MD M Ot R05 COUGH 07/08/2019 JOHN NEVES, MAYE [place] Ot A41. 9 SEPSIS, UNSPECIFIED ORGANISM 07/08/2019 OJHN NEVES, MAYE [place] Ot M71.022 ABSCESS OF BURSA, LEFT ELBOW 07/08/2019 JOHN NEVES, MAYE M Ot M71.122 OTHER INFECTIVE BURSITIS, LEFT ELBOW 07/08/2019 JOHN NEVES, MAYE M Ot R05 COUGH Procedures Code Description Performed By Per formed On [id number] DR WOOD OF LEFT ELBOW BURSA AND LIGAMEN 07/06/2019 Results Test Result Range Streptococcus pyogenes antigen detection - 07/06/19 13:30 Streptococcus pyogenes antigen detection NEGATIVE NEGATIVE Influenza virus A and B antigen detectio n - 07/06/19 13:30 FLU RESULT NEGATIVE FOR INFLUENZA A AND B ANTIGENS BY NE NR Bacterial throat culture - 07/06/19 13:3 0 Bacterial throat culture [id number] NRG FREE TEXT EXTERNAL PLUS NORMAL RUPERTO [...] 13:52 Bacteria identification in wound by culture [id number] NRG FREE TEXT EXTERNAL SEE COMMENT NRG QUANTITY OF GROWTH Moderate Growth NRG FREE TEXT ENTRY 2 PRELIM RAPID ID TEST AT [facility] 07/06 07:30 NRG FREE TEXT ENTRY 3 RML CONFIRMED ID 07/06 17:05 NRG CALL POSITIVES (F1 HELP) CONFIRMED BY RML. 07-08-19 , 6577 NRG PBP2 METHICILLIN SENSITIVE STAPH AUREUS NRG FREE TEXT ENTRY 4 SEE COMMENTS [...] Status Pt. Type Provider Facility Loc./Unit Complaint [id number] 07/06/2019 14:30:[address] Inpatient JOHN NEVES, MAYE [place] [facility] 4TH CELLULITIS L ELBOW,SEPSIS,FL U LIKE ILLNESS
[2019-07-08] MEDS: LINEZOLID IVPB 300 ML IV SCH (21:42)
--- NOTE | 2019-07-08 21:48 | Diagnostic Imaging Report ---
PROCEDURE: CT left upper extremity without contrast. TECHNIQUE: Multiple contiguous axial images were obtained through the left upper extremity without the use of intravenous contrast. Auto Exposure Controls were utilized during the CT exam to meet ALARA standards for radiation dose reduction. INDICATION: Bursitis, persistent fever, possible abscess. FINDINGS: CT scanning of the left upper extremity demonstrates extensive subcutaneous soft tissue edema. The muscles appear normal. No loculated fluid collections are present. There is no elbow joint effusion. No evidence of osteomyelitis is present. There is normal ossification. IMPRESSION: There is extensive soft tissue edema in the subcutaneous tissues. The muscles and osseous structures appear normal. Dictated by: Dictated on workstation # [id number]
--- NOTE | 2019-07-08 23:22 | NUR ---
PT TEMP 38.8 AFTER IBUPROFEN, RR 36, O2 97%, B/P 116/63, PULSE 88. DR CUETO NOTIFIED, ORDERED TO MONITOR PATIENT
[2019-07-09 00:06] VITALS: BP 115/57
[2019-07-09] MEDS: HYDROcodone/APAP 5 MG/325 MG (LORTAB) TAB PO PRN ×3 (00:31→18:33)
[2019-07-09 04:35] VITALS: BP 105/52
[2019-07-09 06:47] LABS: BASOPHILS # (AUTO) 0.1 10^3/uL (0.0-0.1); BASOPHILS % (AUTO) 0 % (0-10); EOSINOPHILS # (AUTO) 0.3 10^3/uL (0.0-0.3); EOSINOPHILS % (AUTO) 1 % (0-10); HEMATOCRIT 38 % (40-54); HEMOGLOBIN 12.3 G/DL (13.3-17.7); LYMPHOCYTES % (AUTO) 14 % (12-44); MEAN CORPUSCULAR HEMOGLOBIN 30 PG (25-34); MEAN CORPUSCULAR HGB CONC 33 G/DL (32-36); MEAN CORPUSCULAR VOLUME 93 FL (80-99); MONOCYTES # (AUTO) 1.6 X 10^3 (0.0-1.0); MONOCYTES % (AUTO) 8 % (0-12); NEUTROPHILS # (AUTO) 16.2 X 10^3 (1.8-7.8); NEUTROPHILS % (AUTO) 77 % (42-75); PLATELET COUNT 203 10^3/uL (130-400); RED CELL DISTRIBUTION WIDTH 13.2 % (10.0-14.5); WHITE BLOOD COUNT 21.1 10^3/uL (4.3-11.0)
--- NOTE | 2019-07-09 07:03 | Progress Note ---
Standard Progress Note Progress Notes/Assess & Plan Date Seen by a Provider: Jul 09, 2019 Time Seen by a Provider: 07:01 Progress/Assessment & Plan patient seen and examined consult dictated findings c/w left olecranon septic bursitis rec abx no need for surgical intervention currently Final Diagnosis feeling much better Vital Signs Date Time Temp Pulse Resp B/P (MAP) Pulse Ox O2 Delivery O2 Flow Rate FiO2 07/09/19 04:35 36.9 71 20 105/52 (69) 99 Room Air 07/09/19 00:33 36.8 07/09/19 00:06 38.0 90 22 115/57 (76) 96 Room Air 07/08/19 22:56 38.8 07/08/19 21:42 37.9 07/08/19 20:50 Room Air 07/08/19 19:23 37.8 91 20 114/57 (76) 97 Room Air 07/08/19 17:54 38.7 07/08/19 17:51 38.7 07/08/19 16:41 38.0 96 12 116/56 (76) 100 Room Air 07/08/19 12:00 37.8 91 18 106/65 (79) 97 Room Air 07/08/19 10:40 37.8 07/08/19 09:00 99 Room Air 07/08/19 08:00 37.3 74 20 120/75 (90) 97 Room Air I & O 07/09/19 07:00 Intake Total 2575 ml Balance 2575 ml Laboratory Tests Test 07/09/19 06:40 Range/Units White Blood Count 21.1 H 4.3-11.0 10^3/uL Red Blood Count 4.08 L 4.35-5.85 10^6/uL Hemoglobin 12.3 L 13.3-17.7 G/DL Hematocrit 38 L 40-54 % Mean Corpuscular Volume 93 80-99 FL Mean Corpuscular Hemoglobin 30 25-34 PG Mean Corpuscular Hemoglobin Concent 33 32-36 G/DL Red Cell Distribution Width 13.2 10.0-14.5 % Platelet Count 203 130-400 10^3/uL Mean Platelet Volume 12.0 H 7.4-10.4 FL Neutrophils (%) (Auto) 77 H 42-75 % Lymphocytes (%) (Auto) 14 12-44 % Monocytes (%) (Auto) 8 0-12 % Eosinophils (%) (Auto) 1 0-10 % Basophils (%) (Auto) 0 0-10 % Neutrophils # (Auto) 16.2 H 1.8-7.8 X 10^3 Lymphocytes # (Auto) 3.0 1.0-4.0 X 10^3 Monocytes # (Auto) 1.6 H 0.0-1.0 X 10^3 Eosinophils # (Auto) 0.3 0.0-0.3 10^3/uL Basophils # (Auto) 0.1 0.0-0.1 10^3/uL CT scan without fluid collection/abscess L elbow with erythema, no fluid noted ROM unchanged imp--L elbow cellulitis improved from last PM continue abx no need for I and D Focused Exam Lactate Level 07/06/19 13:37: Lactic Acid Level 1.04 HELENA PEREZ MD Jul 09, 2019 07:03
[2019-07-09 07:07] LABS: BUN/CREATININE RATIO 10; CALCIUM 9.3 MG/DL (8.5-10.1); CARBON DIOXIDE 19 MMOL/L (21-32); CHLORIDE 105 MMOL/L (98-107); CREATININE SERUM 0.69 MG/DL (0.60-1.30); GFR ESTIMATED > 60; GLUCOSE 87 MG/DL (70-105); POTASSIUM 3.7 MMOL/L (3.6-5.0); SODIUM 137 MMOL/L (135-145)
[2019-07-09 08:00] VITALS: BP 118/71
[2019-07-09] MEDS: LINEZOLID IVPB 300 ML IV SCH ×2 (09:57→21:41)
[2019-07-09] MEDS: cefTRIAXone FOR IV USE 2,000 MG in WATER (STERILE) FOR INJECTION 20 ML IV SCH (09:58)
[2019-07-09] MEDS: IBUPROFEN 800 MG (MOTRIN) TAB PO PRN (10:34)
[2019-07-09 12:00] VITALS: BP 126/62
--- NOTE | 2019-07-09 12:30 | Progress Note - Hospitalist ---
Subjective HPI/CC On Admission Date Seen by Provider: Jul 09, 2019 Time Seen by Provider: 12:27 Pt is a 27yoCM who presented to the ER due to fever and cough. He was found to have a left olecranon bursitis and this was drain in the ER. He reports that he is feeling better today but still having fevers. He still have pain in his elbow but this has improved as well. Subjective/Events-last exam Pt reports feeling better. No concerns. Discussed with RN. Afebrile and erythema improving. Focused Exam Lactate Level 07/06/19 13:37: Lactic Acid Level 1.04 Objective Exam Vital Signs Vital Signs Date Time Temp Pulse Resp B/P (MAP) Pulse Ox O2 Delivery O2 Flow Rate FiO2 07/09/19 08:00 36.9 73 18 118/71 (87) 98 Room Air Capillary Refill : NONE General Appearance: No Apparent Distress, WD/WN Respiratory: Lungs Clear, No Respiratory Distress Cardiovascular: Regular Rate, Rhythm, No Murmur Extremity: Other (improving edema and erythema of left elbow, within demarcation) Results/Procedures Lab Laboratory Tests 07/09/19 06:40 Patient resulted labs reviewed. Imaging: Reviewed Imaging Report Assessment/Plan Assessment and Plan Assess & Plan/Chief Complaint Sepsis Septic olecranon bursitis Afebrile since 0033 this AM Continue Rocephin and Linezolid- added due to worsening clinical presentation Cultures growing staph and strep Ortho consulted, appreciate recs CT negative for abscess Diagnosis/Problems Diagnosis/Problems (1) Sepsis Status: Acute Qualifiers: Sepsis type: methicillin susceptible Staphylococcus aureus Sepsis acute organ dysfunction status: without acute organ dysfunction Qualified Codes: A41.01 - Sepsis due to methicillin susceptible Staphylococcus aureus (2) Cellulitis of left elbow Status: Acute Clinical Quality Measures DVT/VTE Risk/Contraindication: Risk Factor Score Per Nursin RFS Level Per Nursing on Admit: 4+=Very High MAYE LOPEZ MD Jul 09, 2019 12:30
[2019-07-09] MEDS: ENOXAPARIN 40 MG/0.4 ML (LOVENOX) SYR SQ SCH (14:45)
--- NOTE | 2019-07-09 15:55 | NUR ---
this Rn took over patient care at this time. patient alert and orientated. family at bedside. family and patient verbalized no additional needs at this time
[2019-07-09 16:05] VITALS: BP 116/63
[2019-07-09 19:08] VITALS: BP 116/55
[2019-07-09] MEDS: ACETAMINOPHEN 325 MG TABLET PO PRN (23:57)
[2019-07-10] VITALS (14 sets, daily range): BP systolic 93–143; BP diastolic 56–98
[2019-07-10 05:36] LABS: HEMOGLOBIN 12.8 G/DL (13.3-17.7); MEAN PLATELET VOLUME 11.8 FL (7.4-10.4); RED CELL DISTRIBUTION WIDTH 12.9 % (10.0-14.5)
[2019-07-10 05:56] LABS: BUN/CREATININE RATIO 9; CALCIUM 9.6 MG/DL (8.5-10.1); CARBON DIOXIDE 21 MMOL/L (21-32); CHLORIDE 102 MMOL/L (98-107); CREATININE SERUM 0.76 MG/DL (0.60-1.30); GFR ESTIMATED > 60; GLUCOSE 87 MG/DL (70-105); POTASSIUM 3.8 MMOL/L (3.6-5.0); SODIUM 134 MMOL/L (135-145)
[2019-07-10] MEDS: LINEZOLID IVPB 300 ML IV SCH ×2 (09:01→21:30)
[2019-07-10] MEDS: cefTRIAXone FOR IV USE 2,000 MG in WATER (STERILE) FOR INJECTION 20 ML IV SCH (09:01)
--- NOTE | 2019-07-10 09:50 | Progress Note ---
Standard Progress Note Progress Notes/Assess & Plan Date Seen by a Provider: Jul 10, 2019 Time Seen by a Provider: 09:48 Progress/Assessment & Plan patient seen and examined consult dictated findings c/w left olecranon septic bursitis rec abx no need for surgical intervention currently Final Diagnosis spiked temp again last PM Vital Signs Date Time Temp Pulse Resp B/P (MAP) Pulse Ox O2 Delivery O2 Flow Rate FiO2 07/10/19 07:16 36.1 82 15 116/57 (76) 94 Room Air 07/10/19 07:06 37.0 85 20 114/56 (75) 96 Room Air 07/10/19 04:30 37.5 76 22 93/59 (70) 99 Room Air 07/10/19 01:00 37.6 07/10/19 01:00 37.8 07/10/19 00:11 38.9 91 20 121/73 (89) 98 Room Air 07/09/19 23:57 38.9 07/09/19 19:45 Room Air 07/09/19 19:08 37.6 90 17 116/55 (75) 98 Room Air 07/09/19 16:05 36.8 74 18 116/63 (80) 98 Room Air 07/09/19 12:00 36.9 86 18 126/62 (83) 91 Room Air I & O 07/10/19 07:00 Intake Total 3320 ml Balance 3320 ml Laboratory Tests Test 07/10/19 05:27 Range/Units White Blood Count 20.0 H 4.3-11.0 10^3/uL Red Blood Count 4.17 L 4.35-5.85 10^6/uL Hemoglobin 12.8 L 13.3-17.7 G/DL Hematocrit 38 L 40-54 % Mean Corpuscular Volume 92 80-99 FL Mean Corpuscular Hemoglobin 31 25-34 PG Mean Corpuscular Hemoglobin Concent 33 32-36 G/DL Red Cell Distribution Width 12.9 10.0-14.5 % Platelet Count 251 130-400 10^3/uL Mean Platelet Volume 11.8 H 7.4-10.4 FL Sodium Level 134 L 135-145 MMOL/L Potassium Level 3.8 3.6-5.0 MMOL/L Chloride Level 102 98-107 MMOL/L Carbon Dioxide Level 21 21-32 MMOL/L Anion Gap 11 5-14 MMOL/L Blood Urea Nitrogen 7 7-18 MG/DL Creatinine 0.76 0.60-1.30 MG/DL Estimat Glomerular Filtration Rate > 60 BUN/Creatinine Ratio 9 Glucose Level 87 70-105 MG/DL Calcium Level 9.6 8.5-10.1 MG/DL L elbow with no change in erythema, but fluctuance noted at olecranon imp--l olecranon bursitis under sterile conditions the L olecranon bursa was aspirated with 7 ml of purulent material obtained will send for culture consider I and D/ bursectomy if no improvement HELENA PEREZ MD Jul 10, 2019 09:50
--- NOTE | 2019-07-10 09:56 | Progress Note-Pre Operative ---
Pre-Operative Progress Note H&P Reviewed The H&P was reviewed, patient examined and no changes noted. Date Seen by Provider: Jul 10, 2019 Time Seen by Provider: 09:56 Date H&P Reviewed: Jul 10, 2019 Time H&P Reviewed: 09:56 Pre-Operative Diagnosis: septic left olecranon bursitis HELENA PEREZ MD Jul 10, 2019 09:56
--- NOTE | 2019-07-10 09:57 | Progress Note-Post Operative ---
Post-Operative Progess Note Surgeon (s)/Space Sciences Director (s) Surgeon HELENA PEREZ MD Space Sciences Director: Rigoberto Fowler Pre-Operative Diagnosis septic left olecranon bursitis Post-Operative Diagnosis septic left olecranon bursitis Procedure & Operative Findings Date of Procedure 07/10/19 Procedure Performed/Findings left olecranon bursectomy and irrigation and debridement Anesthesia Type GETA Estimated Blood Loss Estimated blood loss (mL): minimal Specimens/Packing Specimens Removed cultures Packing: none HELENA PEREZ MD Jul 10, 2019 09:57
--- NOTE | 2019-07-10 10:52 | Progress Note - Hospitalist ---
Subjective HPI/CC On Admission Date Seen by Provider: Jul 10, 2019 Time Seen by Provider: 10:47 Pt is a 27yoCM who presented to the ER due to fever and cough. He was found to have a left olecranon bursitis and this was drain in the ER. He reports that he is feeling better today but still having fevers. He still have pain in his elbow but this has improved as well. Subjective/Events-last exam Pt reports feeling ok but nervous abotu surgery. Febrile overnight again. Discussed with Dr Rodriguez and he plans to take him to the OR since now there is fluctuance. Objective Exam Vital Signs Vital Signs Date Time Temp Pulse Resp B/P (MAP) Pulse Ox O2 Delivery O2 Flow Rate FiO2 07/10/19 07:16 36.1 82 15 116/57 (76) 94 Room Air Capillary Refill : Less Than 3 Seconds General Appearance: No Apparent Distress, WD/WN Respiratory: Lungs Clear, No Respiratory Distress Cardiovascular: Regular Rate, Rhythm, No Murmur Extremity: Other (stable erythema and edema of left elbow with pus draining which is new) Neurologic/Psychiatric: Alert, Oriented x3 Results/Procedures Lab Laboratory Tests 07/10/19 05:27 Patient resulted labs reviewed. Imaging: Reviewed Imaging Report Assessment/Plan Assessment and Plan Assess & Plan/Chief Complaint Sepsis Septic olecranon bursitis Afebrile since 0033 this AM Continue Rocephin and Linezolid Cultures growing staph and strep CT showed no abscess two days ago Ortho consulted, appreciate recs Plan to go to OR today due to new fluctuance and drainage Diagnosis/Problems Diagnosis/Problems (1) Sepsis Status: Acute Qualifiers: Sepsis type: methicillin susceptible Staphylococcus aureus Sepsis acute organ dysfunction status: without acute organ dysfunction Qualified Codes: A41.01 - Sepsis due to methicillin susceptible Staphylococcus aureus (2) Cellulitis of left elbow Status: Acute Clinical Quality Measures DVT/VTE Risk/Contraindication: Risk Factor Score Per Nursin RFS Level Per Nursing on Admit: 4+=Very High MAYE LOPEZ MD Jul 10, 2019 10:51
[2019-07-10] MEDS ORDERED: BUPIVACAINE 0.5% 30 ML (SENSORCAINE) VIAL ONE (11:48)
[2019-07-10] MEDS ORDERED: BUP/EPI 0.5% 1:200,000 (SENSORCAINE) 30 ML VIAL ONE (11:48)
--- NOTE | 2019-07-10 12:00 | NUR ---
PT VERBALIZED DRINKING WATER THIS AM BUT DID NOT EAT HIS TRAY. OR NURSE WAS PRESENT AT BEDSIDE DURING QUESTIONING OF NPO STATUS
--- NOTE | 2019-07-10 12:02 | NUR ---
PT TO SURGERY VIA BED
[2019-07-10] MEDS ORDERED: MIDAZOLAM 2 MG/2 ML (VERSED) VIAL ONE (12:05)
[2019-07-10] MEDS ORDERED: fentaNYL INJECTION 100 MCG/2 ML AMP ONE ×2 (12:05→12:23)
[2019-07-10] MEDS ORDERED: ONDANSETRON 4 MG/2 ML (SDV) Z0FRAN ONE (12:26)
[2019-07-10] MEDS ORDERED: LIDOCAINE PF 2% 5 ML (XYLOCAINE) VIAL ONE (12:26)
[2019-07-10] MEDS ORDERED: SEVOFLURANE (ULTANE) 15 ML INHAL SOLN ONE ×4 (12:26→12:47)
[2019-07-10] MEDS ORDERED: proPOfol 200 MG/20 ML (DIPRIVAN) VIAL IV ONE (12:26)
[2019-07-10] MEDS ORDERED: DEXAMETHASONE 10 MG/ML (DECADRON) 1 ML VIAL ONE (12:26)
[2019-07-10] MEDS ORDERED: morphine INJ 10 MG/ML 1ML (SYR OR VIAL) ONE (12:42)
[2019-07-10] MEDS ORDERED: fentaNYL INJECTION 100 MCG/2 ML AMP IVP ONE (12:45)
[2019-07-10] MEDS ORDERED: morphine INJ 10 MG/ML 1ML (SYR OR VIAL) IVP ONE (12:45)
[2019-07-10] MEDS ORDERED: ONDANSETRON 4 MG/2 ML (SDV) Z0FRAN IVP PRN (12:45)
[2019-07-10] MEDS ORDERED: MEPERIDINE (DEMEROL) INJ 50 MG/ML IVP ONE (12:45)
--- NOTE | 2019-07-10 14:26 | NUR ---
PT RETURNED FROM RECOVERY, PT A&O, 2L O2, L ARM ELEVATED WITH ICE, SCD'S APPLIED, PT DENIES NEEDS AT THIS TIME, PAIN TOLERABLE. WILL CONTINUE TO MONITOR
[2019-07-10] MEDS: ENOXAPARIN 40 MG/0.4 ML (LOVENOX) SYR SQ SCH (14:55)
[2019-07-10] MEDS: HYDROcodone/APAP 7.5 MG/325 MG (LORTAB, LORCET PLUS) TABLET PO PRN (14:55)
--- NOTE | 2019-07-10 15:43 | OPERATIVE REPORT ---
DATE OF SERVICE: 07/10/2019 PREOPERATIVE DIAGNOSIS: Left olecranon septic bursitis. POSTOPERATIVE DIAGNOSIS: Left olecranon septic bursitis. PROCEDURE: Left olecranon bursectomy with irrigation and debridement. SURGEON: Teofilo Perez MD. DECK BUILDER: Rigoberto Fowler, who assisted throughout the procedure and closed the incision. ANESTHESIA: General endotracheal by Rigoberto Guzman CRNA. TOURNIQUET TIME: 11 minutes at 250 mmHg. ESTIMATED BLOOD LOSS: Minimal. DRAINS: None. COMPLICATIONS: None. Cultures were sent. The patient was transferred to the recovery room awake and in stable condition. STATEMENT OF MEDICAL NECESSITY: The patient is a 28-year-old right hand dominant gentleman who was admitted earlier in the week for flu-like symptoms as well as left elbow swelling, erythema and pain. He was treated with IV antibiotics. Initially, he had a fair response, but continued to spike fevers and his white count remained elevated. This morning he was found to have a fluctuance in his olecranon bursa, which was new. This was aspirated and 7 mL of grossly purulent material was obtained. His erythema had progressed and his white count remained elevated. Because of this, it was elected to proceed with operative bursectomy and irrigation and debridement. DESCRIPTION OF PROCEDURE: After risks and benefits of procedure were discussed and questions were answered, informed consent was signed and placed on chart, the operative site was confirmed in the preoperative holding area initialed by the surgeon. The patient was then transferred to the operating room and after adequate levels of general endotracheal anesthetic were obtained, a timeout was called, confirming the operative site. Left upper extremity was prepped and draped in the usual sterile fashion with arm elevated, tourniquet inflated to 250 mmHg. A curvilinear incision was made with a posterior lateral aspect of the elbow. The underlying soft tissues were dissected. The bursa was identified and resected. There was some mild purulence within the bursa itself. The surrounding nonbursal tissue demonstrated no abnormalities with no necrosis noted and no gross purulence. His fascia was intact. The tourniquet was deflated for a total time of 11 minutes. Pressure was used for hemostasis as was cautery. The wound was copiously irrigated, 3-0 Vicryl was used to reapproximate subcutaneous tissue and skin was closed with 4-0 nylon in vertical mattress interrupted fashion. A soft dressing was applied. The patient was transferred to the recovery room awake and in stable condition. Job ID: [id number] DocumentID: [id number] Dictated Date: 07/10/2019 13:00:13 Law Secretary Date: 07/10/2019 15:42:45 Dictated By: TEOFILO PEREZ MD
[2019-07-11 00:20] VITALS: BP 99/49
[2019-07-11 03:30] VITALS: BP 116/58
[2019-07-11 07:38] VITALS: BP 106/57
[2019-07-11] MEDS: HYDROcodone/APAP 7.5 MG/325 MG (LORTAB, LORCET PLUS) TABLET PO PRN ×2 (08:05→15:43)
[2019-07-11] MEDS: cefTRIAXone FOR IV USE 2,000 MG in WATER (STERILE) FOR INJECTION 20 ML IV SCH (08:05)
[2019-07-11] MEDS: LINEZOLID IVPB 300 ML IV SCH ×2 (08:05→20:07)
--- NOTE | 2019-07-11 10:13 | Progress Note ---
Standard Progress Note Progress Notes/Assess & Plan Date Seen by a Provider: Jul 11, 2019 Time Seen by a Provider: 10:11 Progress/Assessment & Plan patient seen and examined consult dictated findings c/w left olecranon septic bursitis rec abx no need for surgical intervention currently Final Diagnosis feeling much better afebrile through the night Vital Signs Date Time Temp Pulse Resp B/P (MAP) Pulse Ox O2 Delivery O2 Flow Rate FiO2 07/11/19 08:00 Room Air 07/11/19 07:38 35.7 82 19 106/57 (73) 98 Room Air 07/11/19 03:30 36.9 78 17 116/58 (77) 94 Room Air 07/11/19 00:20 37.2 95 16 99/49 (66) 95 Room Air 07/10/19 20:00 Room Air 07/10/19 19:51 36.4 60 16 109/63 (78) 95 Room Air 07/10/19 15:54 36.2 89 15 110/63 (79) 95 Room Air 07/10/19 14:55 36.2 89 15 109/63 (78) 94 Room Air 07/10/19 14:10 Room Air 07/10/19 14:10 36.4 11 95 Room Air 07/10/19 14:00 36.4 12 131/86 (101) 94 Room Air 07/10/19 13:55 OxyMask 0.5 07/10/19 13:51 17 124/91 (102) 96 OxyMask 1 07/10/19 13:45 OxyMask 3 07/10/19 13:40 17 143/98 (113) 98 OxyMask 3 07/10/19 13:30 18 137/98 (111) 99 OxyMask 5 07/10/19 13:30 OxyMask 5 07/10/19 13:20 18 141/93 (109) 100 OxyMask 10 07/10/19 13:15 OxyMask 10 07/10/19 13:15 36.6 20 138/88 (105) 99 OxyMask 10 07/10/19 11:02 37.4 81 20 107/67 (80) 93 Room Air I & O 07/11/19 07:00 Intake Total 1860 ml Balance 1860 ml cultures pending. Gram stain few Gram pos cocci LUE with decreased erythema, ROM improved s/p L olecranon bursectomy doing well continue abx possible DC tomorrow HELENA PEREZ MD Jul 11, 2019 10:13
[2019-07-11 10:56] LABS: HEMOGLOBIN 11.8 G/DL (13.3-17.7); MEAN PLATELET VOLUME 11.6 FL (7.4-10.4); RED CELL DISTRIBUTION WIDTH 12.7 % (10.0-14.5); WHITE BLOOD COUNT 22.9 10^3/uL (4.3-11.0)
--- NOTE | 2019-07-11 11:52 | Progress Note - Hospitalist ---
Subjective HPI/CC On Admission Date Seen by Provider: Jul 11, 2019 Time Seen by Provider: 11:48 Pt is a 27yoCM who presented to the ER due to fever and cough. He was found to have a left olecranon bursitis and this was drain in the ER. He reports that he is feeling better today but still having fevers. He still have pain in his elbow but this has improved as well. Subjective/Events-last exam Pt reports feeling much better. No complaints. Now over 24 hours without fever. Objective Exam Vital Signs Vital Signs Date Time Temp Pulse Resp B/P (MAP) Pulse Ox O2 Delivery O2 Flow Rate FiO2 07/11/19 08:00 Room Air 07/11/19 07:38 35.7 82 19 106/57 (73) 98 07/10/19 13:55 0.5 Capillary Refill : Less Than 3 SecondsLess Than 3 Seconds General Appearance: No Apparent Distress, WD/WN Respiratory: Lungs Clear, No Respiratory Distress Cardiovascular: Regular Rate, Rhythm, No Murmur Extremity: Other (left elbow wrapped in surgical dressing) Neurologic/Psychiatric: Alert, Oriented x3 Results/Procedures Lab Laboratory Tests 07/11/19 10:47 Patient resulted labs reviewed. Imaging: Reviewed Imaging Report Assessment/Plan Assessment and Plan Assess & Plan/Chief Complaint Sepsis Septic olecranon bursitis s/p I&D Now afebrile x 24 hours Continue Rocephin and Linezolid until operative cultures back Cultures growing staph and strep Ortho consulted, appreciate recs Diagnosis/Problems Diagnosis/Problems (1) Sepsis Status: Acute Qualifiers: Sepsis type: methicillin susceptible Staphylococcus aureus Sepsis acute o rgan dysfunction status: without acute organ dysfunction Qualified Codes: A41.01 - Sepsis due to methicillin susceptible Staphylococcus aureus (2) Cellulitis of left elbow Status: Acute Clinical Quality Measures DVT/VTE Risk/Contraindication: Risk Factor Score Per Nursin RFS Level Per Nursing on Admit: 4+=Very High MAYE LOPEZ MD Jul 11, 2019 11:52
[2019-07-11 12:30] VITALS: BP 118/64
--- NOTE | 2019-07-11 13:28 | Anesthesia-General Post-Op ---
General Patient Condition Mental Status/LOC: Same as Preop Cardiovascular: Satisfactory Nausea/Vomiting: Absent Respiratory: Satisfactory Pain: Controlled Complications: Absent Post Op Complications Complications None Follow Up Care/Instructions Patient Instructions None needed. Anesthesia/Patient Condition Patient Condition Patient is doing well, no complaints, stable vital signs, no apparent adverse anesthesia problems. No complications reported per nursing. ANUJ CHA CRNA Jul 11, 2019 13:28
[2019-07-11] MEDS: ENOXAPARIN 40 MG/0.4 ML (LOVENOX) SYR SQ SCH (14:28)
[2019-07-11 15:16] VITALS: BP 115/57
[2019-07-11 19:37] VITALS: BP 109/55
[2019-07-12 00:45] VITALS: BP 123/76
[2019-07-12] MEDS: HYDROcodone/APAP 7.5 MG/325 MG (LORTAB, LORCET PLUS) TABLET PO PRN (06:31)
--- NOTE | 2019-07-12 07:43 | Progress Note ---
Standard Progress Note Progress Notes/Assess & Plan Date Seen by a Provider: Jul 12, 2019 Time Seen by a Provider: 07:41 Progress/Assessment & Plan patient seen and examined consult dictated findings c/w left olecranon septic bursitis rec abx no need for surgical intervention currently Final Diagnosis feeling better Vital Signs Date Time Temp Pulse Resp B/P (MAP) Pulse Ox O2 Delivery O2 Flow Rate FiO2 07/12/19 00:45 36.0 65 16 123/76 (92) 99 Room Air 07/11/19 20:10 Room Air 07/11/19 19:37 36.2 68 17 109/55 (73) 96 Room Air 07/11/19 15:16 36.7 77 15 115/57 (76) 96 Room Air 07/11/19 12:30 36.0 82 17 118/64 (82) 96 Room Air 07/11/19 08:00 Room Air I & O 07/12/19 07:00 Intake Total 2480 ml Balance 2480 ml Left olecranon without fluctuance. incision clean and dry. erythema markedly improved with minimal residual distally s/p L olecranon bursectomy doing well Afebrile since surgery. OK to DC from my standpoint Keflex for 1 week HELENA PEREZ MD Jul 12, 2019 07:43
[2019-07-12 08:00] VITALS: BP 108/63
[2019-07-12] MEDS: cefTRIAXone FOR IV USE 2,000 MG in WATER (STERILE) FOR INJECTION 20 ML IV SCH (08:12)
[2019-07-12] MEDS: LINEZOLID IVPB 300 ML IV SCH (08:12)
[2019-07-12] MEDS ORDERED: HYDR-4226 PO (11:35)
[2019-07-12] MEDS ORDERED: CEPH-507 PO (11:35)
--- NOTE | 2019-07-12 15:47 | Discharge Summary ---
Discharge Summary Hospital Course Was the Problem List Reviewed?: Yes Problems/Dx: (1) Sepsis Status: Acute Qualifiers: Qualified Codes: A41.01 - Sepsis due to methicillin susceptible Staphylococcus aureus (2) Cellulitis of left elbow Status: Acute (3) Septic olecranon bursitis of left elbow Status: Acute Hospital Course Date of Admission: Jul 06, 2019 at 14:30 Admission Diagnosis : Sepsis due to cellulitis of left elbow Family Physician/Provider: Date of Discharge: 07/12/19 Discharge Diagnosis: Septic olecranon bursitis of the left elbow Hospital Course: Robb Higginbotham is a 28yoM who was admitted with sepsis due to cellulitis of the left elbow. He was started on antibiotics but failed to improve. Ortho was consulted. CT did not show any abscess. He continued to fever with elevated white count. He developed fluctuance and drainage and Ortho proceeded with incision and drainage and a left elbow bursectomy. His cultures grew MSSA. He was given a course of Keflex. He was set up to establish care with [facility]. Labs and Pending Lab Test: Microbiology 07/10/19 Gram Stain - Final, Resulted 07/10/19 Anaerobic Culture - Preliminary, Resulted 07/10/19 Surgical Culture - Preliminary, Resulted No growth 07/06/19 Blood Culture - Final, Complete No growth 07/06/19 Throat Culture - Final, Complete Strep, Beta Hemolytic Group A Home Meds Active Hydrocodone/Acetaminophen 5 MG/325 MG TAB (Hydrocodone/Acetaminophen) 1 Each Tablet 1 Tab PO Q4-6HR MDD 10 TABS 7 Days Keflex (Cephalexin) 500 Mg Capsule 500 Mg PO BID 14 Days Assessment/Pt Instructions Take medications as prescribed. Complete your course of antibiotics even if you are feeling better. Establish care with a PCP at [facility]. Discharge Planning: <30 minutes discharge planning Discharge Instructions Discharge Diet: No Restrictions, Regular Diet Activity as Tolerated: Yes Discharge Physical Examination Vital Signs Vital Signs Date Time Temp Pulse Resp B/P (MAP) Pulse Ox O2 Delivery O2 Flow Rate FiO2 07/12/19 08:00 36.1 56 16 108/63 (78) 95 Room Air 07/12/19 08:00 0.50 General Appearance: No Apparent Distress, WD/WN Respiratory: Lungs Clear, Normal Breath Sounds, No Respiratory Distress Cardiovascular: Regular Rate, Rhythm, No Edema, No Murmur Gastrointestinal: Normal Bowel Sounds, Non Tender, Soft Extremity: No Pedal Edema, Other (left elbow with dressing in place) Skin: Normal Color, Warm/Dry Neurologic/Psychiatric: Alert, Oriented x3 Allergies: Coded Allergies: No Known Drug Allergies (Unverified , 07/06/19) Discharge Summary Date of Admission Jul 06, 2019 at 14:30 Date of Discharge Jul 12, 2019 at 12:20 Discharge Date: Jul 12, 2019 Discharge Time: 12:20 Admission Diagnosis Sepsis Discharge Diagnosis (1) Septic olecranon bursitis of left elbow Status: Acute Clinical Quality Measures DVT/VTE Risk/Contraindication: Risk Factor Score Per Nursin RFS Level Per Nursing on Admit: 4+=Very High ZOHRA RECINOS MD Jul 12, 2019 15:47
== END 2019-07-12 12:20 | disposition home or self-care (01) | DRG 854 ==
LOC: ER 13:04 → 4TH 14:30
PROVIDERS: ADMIT Family Medicine; ATTEND Family Medicine
PROC: 0M943ZZ Drainage of Left Elbow Bursa and Ligament, Percutaneous Approach (ICD-10-PCS; principal; 2019-07-06)
PROC: 0MT40ZZ Resection of Left Elbow Bursa and Ligament, Open Approach (ICD-10-PCS; 2019-07-10)
DX: A41.01 Sepsis due to Methicillin susceptible Staphylococcus aureus (principal); M70.22 Olecranon bursitis, left elbow; L03.114 Cellulitis of left upper limb; R05 Cough; E66.9 Obesity, unspecified; Z68.37 Body mass index [BMI] 37.0-37.9, adult
CPT/HCPCS: 36415; 71045; 73200; 80048; 80053; 83605; 85007; 85025; 85027; 87040; 87070; 87075; 87077; 87186; 87205; 87430; 87804

== ENCOUNTER 2022-06-16 13:56 | Observation (INO) | payer SELFPAY ==
[~2022-06-16] VITALS: Ht 165 cm; Wt 96.3 kg
[~2022-06-16 13:56] MED LIST: CEPH-507 PO; HYDR-4226 PO
[2022-06-16] MEDS ORDERED: fentaNYL INJ 100 MCG/2 ML AMP IVP STA (14:21)
[2022-06-16] MEDS ORDERED: KETOROLAC 30 MG/ML VIAL IVP ONE (14:30)
[2022-06-16 14:35] LABS: BASOPHILS # (AUTO) 0.1 10^3/uL (0.0-0.1); BASOPHILS % (AUTO) 0 % (0-10); EOSINOPHILS # (AUTO) 0.1 10^3/uL (0.0-0.3); EOSINOPHILS % (AUTO) 1 % (0-10); HEMATOCRIT 39 % (40-54); HEMOGLOBIN 13.1 g/dL (13.3-17.7); LYMPHOCYTES # (AUTO) 2.3 X 10^3 (1.0-4.0); LYMPHOCYTES % (AUTO) 10 % (12-44); MEAN CORPUSCULAR HEMOGLOBIN 31 pg (25-34); MEAN CORPUSCULAR HGB CONC 33 g/dL (32-36); MEAN CORPUSCULAR VOLUME 94 fL (80-99); MEAN PLATELET VOLUME 11.7 fL (9.0-12.2); MONOCYTES # (AUTO) 1.9 X 10^3 (0.0-1.0); MONOCYTES % (AUTO) 9 % (0-12); NEUTROPHILS # (AUTO) 17.8 X 10^3 (1.8-7.8); NEUTROPHILS % (AUTO) 80 % (42-75); PLATELET COUNT 288 10^3/uL (130-400); WHITE BLOOD COUNT 22.3 10^3/uL (4.3-11.0)
--- NOTE | 2022-06-16 14:35 | ED General ---
General Chief Complaint: Fever-Adult/Adol Stated Complaint: RIGHT WRIST/FEET PAIN Source of Information: Patient Exam Limitations: No Limitations (KEYSHAWN HANNA) History of Present Illness Date Seen by Provider: Jun 16, 2022 Time Seen by Provider: 14:32 Initial Comments Patient is a 31-year-old male who is speaking who presents to ED with family for joint pain, swelling. States symptoms started on Friday with pain in his right elbow and lower extremities. Pain started to increase and has been constant worse with any movement especially at the hip, knee and ankle bilateral. However pain is worse on his right leg especially his knee and right ankle with swelling. Noted increased swelling with some redness above his left ankle 2 days ago. Patient started develop more swelling and redness to his right dorsum hand and wrist. He went to [facility] on Friday had x- rays of his right wrist and right ankle which were unremarkable according to patient and family. Patient Was placed on meloxicam without much improvement. Swelling has stayed the same in the wrist as well as the lower extremity joints but pain has increased. Reports feeling feverish since Friday. No recent upper respiratory infection. Denies chest pain, cough, nausea, vomiting, diarrhea. Does drink alcohol normally every weekend. 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 Denies of any other medication. Denies history of similar symptoms in the past besides had a infection in his left elbow. He Does have a wound to the right plantar foot. He noticed pain in the foot on friday. He states he received a tetanus shot on Friday. 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 (KEYSHAWN HANNA) Allergies and Home Medications Allergies Coded Allergies: No Known Drug Allergies (Unverified , 07/06/19) Patient Home Medication List Home Medication List Reviewed: Yes (KEYSHAWN HANNA) Acetaminophen (Tylenol Extra Strength) 500 Mg Tablet, 1,000 MG PO Q8H PRN for PAIN-MILD (1-4), (Reported) Entered as Reported by: SHAVONNE DC on 06/17/22 1137 Last Action: Reviewed Amoxicillin/Potassium Clav (Amox Tr-K Clv 875-125 mg Tab) 875 Mg-125 Mg Tablet, 1 EACH PO BID Prescribed by: FRANKIE AYALA on 06/18/22 0950 Prednisone (Prednisone) 10 Mg Tab.ds.pk, 10 MG PO DAILY Prescribed by: FRANKIE AYALA on 06/18/22 0950 Discontinued Medications Meloxicam (Meloxicam) 7.5 Mg Tablet, 7.5 MG PO BID, (Reported) Entered as Reported by: SHAVONNE DC on 06/17/22 1137 Last Action: Reviewed Review of Systems Review of Systems Constitutional: No chills, No diaphoresis; fever, malaise, weakness EENTM: No blurred vision, No double vision Respiratory: No cough, No dyspnea on exertion Cardiovascular: No chest pain Gastrointestinal: No abdominal pain, No diarrhea, No nausea, No vomiting Genitourinary: No decreased output, No discharge Musculoskeletal: No back pain; joint pain, joint swelling Skin: No change in color, No change in hair/nails (KEYSHAWN HANNA) All Other Systems Reviewed Negative Unless Noted: Yes (KEYSHAWN HANNA) Past Monljsw-Exxqws-Wkbjue Hx Patient Social History Tobacco Use?: Yes Tobacco type used: Cigarettes Smoking Status: Current Someday Smoker Use of E-Cig and/or Vaping dev: No Substance use?: No Alcohol Use?: Yes Alcohol Frequency: Couple times a week Pt feels they are or have been: No (KEYSHAWN HANNA) Past Medical History Currently Using CPAP: No Currently Using BIPAP: No (KEYSHAWN HANNA) Family Medical History Patient reports no known family medical history. Physical Exam Vital Signs Vital Signs - First Documented 06/16/22 14:08 Temp 39.1 Pulse 96 Resp 30 B/P (MAP) 128/83 (98) Pulse Ox 98 O2 Delivery Room Air (TUNG MARSHALL MD) Vital Signs Capillary Refill : (KEYSHAWN HANNA) Height, Weight, BMI Height: '" Weight: lbs. oz. kg; 37.53 BMI Method: General Appearance: No Apparent Distress Eyes: Bilateral Eye Normal Inspection, Bilateral Eye PERRL, Bilateral Eye Abnormal EOM HEENT: PERRL/EOMI, TMs Normal, Normal ENT Inspection, Pharynx Normal Neck: Full Range of Motion, Normal Inspection, Non Tender, Supple Respiratory: Chest Non Tender, Lungs Clear, Normal Breath Sounds, No Respiratory Distress Cardiovascular: Regular Rate, Rhythm, No Edema, No Gallop, No JVD, No Murmur Gastrointestinal: Normal Bowel Sounds, No Organomegaly, No Pulsatile Mass, Non Tender Back: Normal Inspection, No CVA Tenderness, No Vertebral Tenderness Extremity: Other (Swelling, redness and warmth to the right dorsum wrist with limited passive range of motion with pain. Swelling bilateral knees, bilateral ankles with limited passive range of motion. Erythema to the left proximal ankle medial side. Small puncture wound to the right plantar foot) Neurologic/Psychiatric: Alert, Oriented x3, No Motor/Sensory Deficits, Normal Mood/Affect, online user experience strategist II-XII Norm as Tested Skin: Erythema (Right dorsal hand), Other (Puncture wound to the right plantar foot) (KEYSHAWN HANNA) Focused Exam Lactate Level 06/16/22 14:24: Lactic Acid Level 1.03 (TUNG MARSHALL MD) Lactic Acid Level Laboratory Tests Test 06/16/22 14:24 Lactic Acid Level 1.03 MMOL/L (0.50-2.00) (TUNG MARSHALL MD) Progress/Results/Core Measures Suspected Sepsis SIRS Temperature: Pulse: Respiratory Rate: Laboratory Tests 06/16/22 14:24: White Blood Count 22.3H Blood Pressure / Mean: 06/16/22 14:24: Lactic Acid Level 1.03 Laboratory Tests 06/16/22 14:24: Creatinine 0.73, Platelet Count 288, Total Bilirubin 0.7 (KEYSHAWN HANNA) Results/Orders Lab Results Laboratory Tests Test 06/16/22 14:24 Range/Units White Blood Count 22.3 H 4.3-11.0 10^3/uL Red Blood Count 4.19 L 4.30-5.52 10^6/uL Hemoglobin 13.1 L 13.3-17.7 g/dL Hematocrit 39 L 40-54 % Mean Corpuscular Volume 94 80-99 fL Mean Corpuscular Hemoglobin 31 25-34 pg Mean Corpuscular Hemoglobin Concent 33 32-36 g/dL Red Cell Distribution Width 12.7 10.0-14.5 % Platelet Count 288 130-400 10^3/uL Mean Platelet Volume 11.7 9.0-12.2 fL Immature Granulocyte % (Auto) 1 % Neutrophils (%) (Auto) 80 H 42-75 % Lymphocytes (%) (Auto) 10 L 12-44 % Monocytes (%) (Auto) 9 0-12 % Eosinophils (%) (Auto) 1 0-10 % Basophils (%) (Auto) 0 0-10 % Neutrophils # (Auto) 17.8 H 1.8-7.8 X 10^3 Lymphocytes # (Auto) 2.3 1.0-4.0 X 10^3 Monocytes # (Auto) 1.9 H 0.0-1.0 X 10^3 Eosinophils # (Auto) 0.1 0.0-0.3 10^3/uL Basophils # (Auto) 0.1 0.0-0.1 10^3/uL Immature Granulocyte # (Auto) 0.2 H 0.0-0.1 10^3/uL Neutrophils % (Manual) 75 % Lymphocytes % (Manual) 13 % Monocytes % (Manual) 10 % Eosinophils % (Manual) 0 % Basophils % (Manual) 0 % Band Neutrophils 2 % Blood Morphology Comment NORMAL Erythrocyte Sedimentation Rate 66 H 0-15 MM/HR Sodium Level 136 135-145 MMOL/L Potassium Level 3.8 3.6-5.0 MMOL/L Chloride Level 103 98-107 MMOL/L Carbon Dioxide Level 22 21-32 MMOL/L Anion Gap 11 5-14 MMOL/L Blood Urea Nitrogen 12 7-18 MG/DL Creatinine 0.73 0.60-1.30 MG/DL Estimat Glomerular Filtration Rate 126 BUN/Creatinine Ratio 16 Glucose Level 98 70-105 MG/DL Lactic Acid Level 1.03 0.50-2.00 MMOL/L Uric Acid 4.4 2.6-7.2 MG/DL Calcium Level 9.1 8.5-10.1 MG/DL Corrected Calcium 9.3 8.5-10.1 MG/DL Total Bilirubin 0.7 0.1-1.0 MG/DL Aspartate Amino Transf (AST/SGOT) 21 5-34 U/L Alanine Aminotransferase (ALT/SGPT) 43 0-55 U/L Alkaline Phosphatase 76 40-136 U/L C-Reactive Protein High Sensitivity 26.18 H 0.00-0.50 MG/DL Total Protein 7.8 6.4-8.2 GM/DL Albumin 3.8 3.2-4.5 GM/DL (TUNG MARSHALL MD) Medications Given in ED Current Medications Medications Dose Ordered Sig/Gloria Route Start Time Stop Time Status Last Admin Dose Admin Ketorolac Tromethamine 30 mg ONCE ONCE IVP 06/16/22 14:30 06/16/22 14:31 DC 06/16/22 14:41 30 MG Methylprednisolone Sodium Succinate 62.5 mg ONCE ONCE IVP 06/16/22 16:45 06/16/22 16:46 DC 06/16/22 17:19 62.5 MG (TUNG MARSHALL MD) Vital Signs/I&O 06/16/22 14:08 Temp 39.1 Pulse 96 Resp 30 B/P (MAP) 128/83 (98) Pulse Ox 98 O2 Delivery Room Air (TUNG MARSHALL MD) Vital Signs/I&O Capillary Refill : (KEYSHAWN HANNA) Departure Communication (Admissions) Time/Spoke to Admitting Phy: 16:[address] Barragan who accepts patient at this time (KEYSHAWN HANNA) Communication (PCP) Supervisor Contact Lens was used as well as family at bedside. Patient with notable swelling to the right dorsum hand and wrist with limited range of motion. No trauma. No area of inoculation.. He does have some notable swelling in the right ankle and right knee without erythema to these locations. He reports bilateral feet, ankle and knee pain throughout the week. Pain is worse to the right knee and ankle with limited range of motion secondary to pain. Patient is currently on meloxicam. No history of gout. Patient was not tachycardic but was febrile. He has no known history of autoimmune disease such as RA, psoriasis. He is not concern for sexual transmitted infection. Urinalysis pending with chlamydia and gonorrhea. White blood count 22,000. Normal lactic acid. Elevated ESR 66, CRP at 27. Concerning for reactive arthritis versus inflammatory versus infectious. Patient was given a dose of Rocephin until results of STD culture. He does have some redness to the left lower leg above the ankle. No recent travels. No area of inoculation. Concerning for cellulitis to this area. Does have some mild tenderness to the left ankle with normal range of motion. Concerning for multiple joint involvement at this time. Normal uric acid. Patient was given Toradol, Solu-Medrol and a dose of pain medication for pain relief. Patient heart rate improved. Patient difficulty ambulating over the past 2-day and worse today. He is needing assistance to get to the bed. Due to the results of the lab work and currently having difficulty standing, patient will be admitted for further evaluation. RF factor, anti-CCP, GA was ordered. Patient was discussed with Dr. Barragan who accepts patient. (KEYSHAWN HANNA) Impression Primary Impression: Polyarthritis Disposition: ADMITTED INPATIENT Condition: Stable Admissions Decision to Admit Reason: Admit from ER (General) Decision to Admit/Date: Jun 16, 2022 Time/Decision to Admit Time: 16:36 (KEYSHAWN HANNA) Departure-Patient Inst. Referrals: [facility] [place] (PCP/Family) Primary Care Physician Scripts Amoxicillin/Potassium Clav (Amox Tr-K Clv 875-125 mg Tab) 875 Mg-125 Mg Tablet 1 EACH PO BID, #10 TAB Prov: FRANKIE AYALA DO 06/18/22 Prednisone (Prednisone) 10 Mg Tab.ds.pk 10 MG PO DAILY, #21 EA Take 6 tabs(60mg)daily,decrease by 1 tab(10MG)daily. Prov: FRANKIE AYALA DO 06/18/22 ATTENDING PHYSICIAN NOTE: I was physically present as attending physician in the emergency department during the care of this patient, but I was not directly involved in the decision making or delivery of care for this patient. (TUNG MARSHALL MD) KEYSHAWN HANNA Jun 16, 2022 14:35 TUNG MARSHALL MD Jun 16, 2022 20:51
[2022-06-16 14:45] LABS: ALBUMIN 3.8 GM/DL (3.2-4.5)
[2022-06-16 14:46] LABS: POTASSIUM 3.8 MMOL/L (3.6-5.0)
[2022-06-16 14:47] LABS: CALCIUM 9.1 MG/DL (8.5-10.1)
[2022-06-16 14:48] LABS: TOTAL PROTEIN 7.8 GM/DL (6.4-8.2)
[2022-06-16 14:50] LABS: BILIRUBIN,TOTAL 0.7 MG/DL (0.1-1.0)
[2022-06-16 14:52] LABS: CREATININE SERUM 0.73 MG/DL (0.60-1.30)
[2022-06-16 14:55] LABS: URIC ACID 4.4 MG/DL (2.6-7.2)
[2022-06-16 15:10] LABS: BAND NEUTROPHILS 2 %; BASOPHILS % (MANUAL) 0 %; EOSINOPHILS % (MANUAL) 0 %; LYMPHOCYTES % (MANUAL) 13 %; MONOCYTES % (MANUAL) 10 %; NEUTROPHILS % (MANUAL) 75 %; RBC MORPH NORMAL
[2022-06-16 15:57] LABS: ERYTHROCYTE SEDIMENTATION RATE 66 MM/HR (0-15)
[2022-06-16] MEDS ORDERED: methylPREDNISolone 125 MG (Solu-MEDROL) VIAL IVP ONE (16:45)
[2022-06-16] MEDS ORDERED: cefTRIAXone 1 GM PRE-MIX 50 ML IV STA (17:48)
[2022-06-16 19:53] VITALS: BP 115/58
[2022-06-16] MEDS ORDERED: CATHETER FLUSH 10 ML SYR IVP PRN (21:00)
[2022-06-16] MEDS: KETOROLAC 30 MG/ML VIAL IV PRN (22:26)
[2022-06-16] MEDS: CATHETER FLUSH 10 ML SYR IVP SCH (22:28)
[2022-06-17 00:13] VITALS: BP 129/71
[2022-06-17 04:01] VITALS: BP 129/66
[2022-06-17] MEDS: methylPREDNISolone 40 MG/ML (Solu-MEDROL) VIAL IV SCH ×3 (05:30→23:56)
[2022-06-17] MEDS: CATHETER FLUSH 10 ML SYR IVP SCH ×3 (05:30→21:34)
[2022-06-17 05:35] LABS: BASOPHILS # (AUTO) 0.1 10^3/uL (0.0-0.1); BASOPHILS % (AUTO) 0 % (0-10); EOSINOPHILS % (AUTO) 0 % (0-10); HEMATOCRIT 37 % (40-54); HEMOGLOBIN 12.2 g/dL (13.3-17.7); LYMPHOCYTES # (AUTO) 1.9 10^3/uL (1.0-4.0); LYMPHOCYTES % (AUTO) 7 % (12-44); MEAN CORPUSCULAR HEMOGLOBIN 31 pg (25-34); MEAN CORPUSCULAR HGB CONC 33 g/dL (32-36); MEAN CORPUSCULAR VOLUME 94 fL (80-99); MEAN PLATELET VOLUME 11.9 fL (9.0-12.2); MONOCYTES # (AUTO) 1.7 10^3/uL (0.0-1.0); MONOCYTES % (AUTO) 7 % (0-12); NEUTROPHILS # (AUTO) 21.6 10^3/uL (1.8-7.8); NEUTROPHILS % (AUTO) 84 % (42-75); PLATELET COUNT 306 10^3/uL (130-400); WHITE BLOOD COUNT 25.9 10^3/uL (4.3-11.0)
[2022-06-17] MEDS ORDERED: FLU QUADRIvalent (6 months+) 60 mcg/0.5 ml 2022-23 (Fluzone) IM ONE (07:00)
[2022-06-17 07:06] VITALS: BP 123/80
[2022-06-17 07:44] LABS: ALBUMIN 3.6 GM/DL (3.2-4.5); BILIRUBIN,TOTAL 0.4 MG/DL (0.1-1.0); CALCIUM 9.5 MG/DL (8.5-10.1); CREATININE SERUM 0.8 MG/DL (0.60-1.30); POTASSIUM 3.9 MMOL/L (3.6-5.0); TOTAL PROTEIN 7.6 GM/DL (6.4-8.2)
[2022-06-17 11:12] VITALS: BP 118/59
[2022-06-17] MEDS ORDERED: ACET-2267 PO (11:37)
[2022-06-17] MEDS ORDERED: MELO7.5T46 PO (11:37)
--- NOTE | 2022-06-17 12:49 | History & Physical-Hospitalist ---
NONA PEÑA 06/17/22 1249: History of Present Illness HPI/Chief Complaint Mr Jimbo Higginbotham is a 31M with past medical hx of prediabetes who presented to the ED on 06/16 complaining of pain in multiple joints. On saturday 06/10 patient started noticing pain in his R foot and ankle. He noticed the ankle was swollen and painful but not erythematous. Over the next day he noticed similar pain and swelling in his right knee and elbow. On 06/12 he noticed swelling and pain in the L ankle and knee that were less severe than the symptoms on his right. The pain progressed to the point he could not ambulate which prompted his ED visit. Today his pain is improved after steroids and pain medication. He is tolerating normal diet and is voiding urine and stool without issue. Joints are not erythematous. Swelling is noted particularly in the R wrist with significant decreased ROM. Patient has a hard time rolling to his side to auscultate the lungs due to his joint pain. Source: patient, family (brother helped with translation) Date Seen 06/17/22 Attending Physician [facility] PCP Admitting Physician: Greg Barragan MD Attending Physician: Safia Ayala DO Referring Physician Date of Admission Jun 16, 2022 at 17:49 Home Medications & Allergies Home Medications Reviewed patient Home Medication Reconciliation performed by pharmacy medication reconciliations insulator technician and/or nursing. Patients Allergies have been reviewed. Allergies Allergies Coded Allergies No Known Drug Allergies (Unverified07/06/19) Past Tpafhgw-Ddmxgk-Wvpbta Hx Patient Social History Tobacco Use?: Yes Tobacco type used: Cigarettes Smoking Status: Light Tobacco Smoker Smokeless Tobacco Frequency: Never a User Use of E-Cig and/or Vaping dev: No Substance use?: No Alcohol Use?: Yes (few drinks per week) Alcohol Frequency: Couple times a week Pt feels they are or have been: No Immunizations Up To Date Tetanus Booster (TDap): Less Than 5 Years Current Status Advance Directives: No Communicates: Verbally Primary Language: Paraguayan Preferred Spoken Language: Paraguayan Is interpretation needed?: Yes Implanted or Applied Medical D: None Past Medical History Surgeries: Orthopedic (surgery to L elbow for infection according to patient) Currently Using CPAP: No Currently Using BIPAP: No Family Medical History Patient reports no known family medical history. Other Conditions/Hx (denies family hx of arthritis or joint problems) Review of Systems Constitutional: No chills, No diaphoresis, No fever Respiratory: No cough, No short of breath, No wheezing Cardiovascular: No chest pain, No palpitations, No syncope Gastrointestinal: No abdominal pain, No nausea, No vomiting Genitourinary: No dysuria, No hematuria Musculoskeletal: joint pain, joint swelling Skin: No change in color Psychiatric/Neurological: Denies Headache Physical Exam Physical Exam Vital Signs Vital Signs - First Documented 06/16/22 14:08 Temp 39.1 Pulse 96 Resp 30 B/P (MAP) 128/83 (98) Pulse Ox 98 O2 Delivery Room Air Capillary Refill : Less Than 3 Seconds Height, Weight, BMI Height: '" Weight: lbs. oz. kg; 35.37 BMI Method: General Appearance: No Apparent Distress, WD/WN, Other (obvious pain at attempted movements of extremities) HEENT: PERRL/EOMI, Moist Mucous Membranes Neck: Supple Respiratory: Chest Non Tender, Lungs Clear, No Accessory Muscle Use Cardiovascular: Regular Rate, Rhythm, Normal Peripheral Pulses Gastrointestinal: Non Tender, Soft; No Distended Rectal: Deferred Extremity: Swelling (R wrist and knee most noticable) Neurologic/Psychiatric: Alert, Oriented x3, Normal Mood/Affect Skin: Normal Color; No Erythema Results Results/Procedures Labs Laboratory Tests 06/16/22 14:24 06/17/22 05:13 Patient resulted labs reviewed. Assessment/Plan Admission Diagnosis Polyarthralgia Assessment and Plan Acute inflammatory polyarthralgia Unknown etiology at this point elevated CRP and ESR Rheumatoid factor, Anti cyclic citrulinated peptide and GA pending Urine Chlamydia and Gonorrhea pending Solumedrol and Ketorolac have improved pain, not completely resolved Normal uric acid at 4.4 PT/OT consulted Leukocytosis 25.9 today up from 22.3 yesterday Continue to monitor and await pending labs Could be infectious cause of arthritis Prediabetes Last glucose 148, continue to monitor SAFIA AYALA DO 06/18/22 0525: History of Present Illness Source: patient Time Seen by a Provider: 10:00 Past Gvzhvcv-Kepjhv-Obyvse Hx Patient Social History Marrital Status: single Employed/Student: employed Family Medical History Patient reports no known family medical history. Review of Systems Musculoskeletal: joint swelling, muscle pain, muscle stiffness, muscle cramps Physical Exam Physical Exam General Appearance: No Apparent Distress, Other (obvious pain at attempted movements of extremities) Respiratory: Lungs Clear Cardiovascular: Regular Rate, Rhythm Assessment/Plan Admission Diagnosis Acute severe polyarthralgia inflammatory type unable to ambulate Admission Status: Observation Supervisory-Addendum Brief Verification & Attestation Participated in pt care: history, MDM, physical Personally performed: exam, history, MDM, supervision of care Care discussed with: Medical Student Procedures: n/a Results interpretation: Verified all documentation Verification and Attestation of Medical Student E/M Service A medical student performed and documented this service in my presence. I reviewed and verified all information documented by the medical student and made modifications to such information, when appropriate. I personally performed the physical exam and medical decision making. Safia Ayala, Jun 18, 2022,05:25 NONA PEÑA Jun 17, 2022 12:49 SAFIA AYALA DO Jun 18, 2022 05:25
[2022-06-17] MEDS: KETOROLAC 30 MG/ML VIAL IV PRN (13:15)
--- NOTE | 2022-06-17 13:38 | Physical Therapy Evaluation ---
PT Evaluation-General Medical Diagnosis Admission Date Jun 16, 2022 at 17:49 Medical Diagnosis: polyarthritis Onset Date: Jun 16, 2022 Therapy Diagnosis Therapy Diagnosis: debility Precautions Precautions/Isolations: Standard Precautions Referral Physician: Gema Reason for Referral: Evaluation/Treatment Medical History Pertinent Medical History: Smoking Current History ER secondary to multiple joint pain and edema Reviewed History: Yes Social History Home: Single Level Current Living Status: Other Family Prior Prior Level of Function SCALE: Activities may be completed with or without assistive devices. 4-Iqljfawxge-lgliwmh completes the activity by him/herself with no assistance from a helper. 5-Set-up or Clean-up Assistance-helper sets up or cleans up; patient completes activity. Kimberly assists only prior to or following the activity. 4-Supervision or Touching Assistance-helper provides verbal cues and/or touching/steadying and/or contact guard assistance as patient completes activity. Assistance may be provided throughout the activity or intermittently. 3-Partial/Moderate Assistance-helper does LESS THAN HALF the effort. Kimberly lifts, holds or supports trunk or limbs, but provides less than half the effort. 2-Substantial/Maximal Assistance-helper does MORE THAN HALF the effort. Kimberly lifts or holds trunk or limbs and provides more than half the effort. 5-Lxgwuehlk-ucjswt does ALL the effort. Patient does none of the effort to complete the activity. Or, the assistance of 2 or more helpers is required for the patient to complete the activity. If activity was not attempted, code reason: 7-Patient Refused. 9-Not Applicable-not attempted and the patient did not perform the activity before the current illness, exacerbation or injury. 10-Not Attempted due to Environmental Limitations-(lack of equipment, weather restraints, etc.). 88-Not Attempted due to Medical Conditions or Safety Concerns. Bed Mobility: 6 Transfers (B,C,W/C): 6 Gait: 6 Stairs: 6 Indoor Mobility (Ambulation): Independent Stairs: Independent Prior Devices Use: None works construction PT Evaluation-Current Subjective Patient agrees to PT. Objective Patient Orientation: Normal For Age ROM/Strength ROM Lower Extremities bilateral LE WFL Strength Lower Extremities 5/5 grossly bilateral LE all planes (tender to palpation right LE) Integumentary/Posture Bowel Incontinence: No Bladder Incontinence: No Posture WFL Neuromuscular (Tone, Coordination, Reflexes) grossly intact Sensory Vision: Functional Hearing: Functional Transfers Roll Left to Right (QC): 6 Sit to Lying (QC): 6 Lying to Sitting/Side of Bed(Q: 6 Sit to Stand (QC): 6 Gait Mode of Locomotion: Walk Anticipated Mode of Locomotion: Walk Walk 10 feet (QC): 6 Walk 50 ft with 2 Turns(QC): 6 Walk 150 ft (QC): 6 Distance: 500' Gait Assistive Device: None Comments/Gait Description safe and functional with no deviation Balance Sitting Static: Normal Sitting Dynamic: Normal Standing Static: Normal Standing Dynamic: Normal Picking up an Object (QC): 6 Assessment/Needs Patient is currently at independent [facility] with all gross motor skills safely and does not require skilled PT intervention at this time. Rehab Potential: Fair PT Plan Treatment/Plan Treatment Plan: Discontinue PT, goals met Treatment Duration: Jun 17, 2022 Frequency: 1 time per week Estimated Hrs Per Day: .25 hour per day Patient and/or Family Agrees t: Yes Time Time In: 1311 Time Out: 1321 DATE: Jun 17, 2022 Total Billed Treatment Time: 10 Total Billed Treatment 1 visit EVLowC 10 min BRANDY HERNÁNDEZ PT Jun 17, 2022 13:38
--- NOTE | 2022-06-17 13:54 | Occupational Therapy Eval ---
OT Evaluation-General/PLF Medical Diagnosis Admission Date Jun 16, 2022 at 17:49 Medical Diagnosis: polyarthritis Onset Date: Jun 16, 2022 Therapy Diagnosis Therapy Diagnosis: pain w/ ROM, edema at joints Precautions Precautions/Isolations: Standard Precautions Referral Physician: Gema Referral Reason: Evaluation/Treatment Medical History Pertinent Medical History: Arthritis, Smoking Reviewed History: Yes Social History Home: Single Level Current Living Status: Other Family ADL-Prior Level of Function SCALE: Activities may be completed with or without assistive devices. 9-Oyuzfyzhjg-hstpydp completes the activity by him/herself with no assistance from a helper. 5-Set-up or Clean-up Assistance-helper sets up or cleans up; patient completes activity. [place] assists only prior to or following the activity. 4-Supervision or Touching Assistance-helper provides verbal cues and/or touching/steadying and/or contact guard assistance as patient completes activity. Assistance may be provided throughout the activity or intermittently. 3-Partial/Moderate Assistance-helper does LESS THAN HALF the effort. [place] lifts, holds or supports trunk or limbs, but provides less than half the effort. 2-Substantial/Maximal Assistance-helper does MORE THAN HALF the effort. [place] lifts or holds trunk or limbs and provides more than half the effort. 0-Ojcmwagub-fcofnl does ALL the effort. Patient does none of the effort to complete the activity. Or, the assistance of 2 or more helpers is required for the patient to complete the activity. If activity was not attempted, code reason: 7-Patient Refused. 9-Not Applicable-not attempted and the patient did not perform the activity before the current illness, exacerbation or injury. 10-Not Attempted due to Environmental Limitations-(lack of equipment, weather restraints, etc.). 88-Not Attempted due to Medical Conditions or Safety Concerns. Self Care: Independent Functional Cognition: Independent OT Current Status Subjective , Resting in bed, agrees to OT w/ demonstration, Frisian and minimal Tam[place]ight communication Mental Status/Objective Patient Orientation: Normal For Age Current Upper Extremity ROM BUE WFLS to perform ADLS w/ pain. Edema slightly reduced following Edema ROM ther-ex. Initially patient ROM reduced and unable to oppose right thumb/little finger, flexion of digits to perform tip/touch, at completion of evaluation patient able to grasp and apply pressure to OT 2 digits for grasp, complete tip/touch Upper Extremity Strength BUE shoulders 5/5, elbows 5/5, Right wrist/digits 3/5, left wrist/digits 5/5 Greatest pain in Right groin area 8/10 at worst and 6/10 best, 2nd location Right ankle 6-8/10 3rd location of pain concern is Right wrist 6-8/10. Edema present in all location, Pain increased with pressure/touch and ROM. ADL-Treatment ADL-Current thong slip on, elastic waist sweat pants. Sequence instruction given for pain and rang of motion for LB dressing Eating (QC): 6 Oral Hygiene (QC): 6 Shower/Bathe Self (QC): 6 Upper Body Dressing (QC): 6 Lower Body Dressing (QC): 6 (mirrored demonstration of sequence Don Right LE first, doff last. Patient rates pain 8/10 with hip flexion and plantar flexion however performs w/o assistance or ADs) On/Off Footwear (QC): 6 Toileting Hygiene (QC): 6 Other Treatments Education for warm/cold contrast compression, elevation, ROM and light edema massage, position to reduce circulation restriction Education OT Patient Education: Correct positioning, Home exercise program, Modified ADL techniques, Progress toward Goal/Update tx plan, Purpose of tx/functional activities, Reviewed precautions, Rehab process, Safety issues Teaching Recipient: Patient Teaching Methods: Demonstration, Discussion Response to Teaching: Verbalize Understanding, Return Demonstration OT [facility] Goals Actuarial Technician Goals 1=Demonstrate adherence to instructed precautions during ADL tasks. 2=Patient will verbalize/demonstrate understanding of assistive devices/modifications for ADL. 3=Patient will improve strength/tolerance for activity to enable patient to perform ADL's. OT Education/Plan Problem List/Assessment Assessment: Decreased UE Strength, Edema, Impaired Self-Care Skills, Restricted Funct UE ROM Discharge Recommendations Plan/Recommendations: Discharge/Goals Met Treatment Plan/Plan of Care Treatment,Training & Education: Yes Patient would benefit from OT for education, treatment and training to promote independence in ADL's, mobility, safety and/or upper extremity function for ADL's. Plan of Care: OTHER (Education goals met at evaluation , DC OT) Treatment Duration: Jun 17, 2022 Frequency: 1 time per week Estimated Hrs Per Day: .25 hour per day Agreement: Yes Rehab Potential: Good Patient remain in chair by window all needs met Time Start Time: 13:30 Stop Time: 14:05 DATE: Jun 17, 2022 Total Time Billed (hr/min): 35 Billed Treatment Time 1 visit 1 EVM 1, ADL 1 35 min TRAM HOLLAND OT Jun 17, 2022 13:54
[2022-06-17 15:40] VITALS: BP 114/56
[2022-06-17] MEDS ORDERED: cefTRIAXone 1 GM PRE-MIX 50 ML IV SCH (18:00)
[2022-06-17 19:42] VITALS: BP 111/57
[2022-06-17] MEDS ORDERED: diphenhydrAMINE 25 MG TAB (BENADRYL) PO PRN ×2 (19:45)
[2022-06-17] MEDS ORDERED: CALCIUM CARBONATE 500 MG (TUMS) TAB.CHEW PO PRN (19:45)
[2022-06-17] MEDS ORDERED: LACTULOSE SYRUP 10GM/15ML (ENULOSE) 30ML UDC PO PRN (19:45)
[2022-06-17] MEDS ORDERED: ACETAMINOPHEN 325 MG TABLET PO PRN (19:45)
[2022-06-17] MEDS ORDERED: ONDANSETRON 4 MG/2 ML (SDV) Z0FRAN IVP PRN (19:45)
[2022-06-17] MEDS ORDERED: ENOXAPARIN 40 MG/0.4 ML (LOVENOX) SYR SC SCH (19:45)
[2022-06-17] MEDS ORDERED: DOCUSATE SODIUM 100 MG (COLACE) CAP PO PRN (19:45)
[2022-06-17] MEDS ORDERED: HYDROcodone/APAP 5 MG/325 MG (LORTAB) TAB PO PRN (19:45)
[2022-06-17] MEDS ORDERED: MELATONIN 3 MG TABLET PO PRN (19:45)
[2022-06-17] MEDS ORDERED: ALPRAZolam 0.25 MG (XANAX) TAB PO PRN (19:45)
[2022-06-17] MEDS ORDERED: LOPERAMIDE 2 MG (IMODIUM) TABLET PO PRN (19:45)
[2022-06-17] MEDS ORDERED: ONDANSETRON 4 MG (ZOFRAN) ORAL DISSOLVE TAB PO PRN (19:45)
[2022-06-17] MEDS: SENNA W/DOCUSATE (SENOKOT S) TABLET PO SCH (21:33)
[2022-06-17] MEDS: polyethylene glycoL POWDER 17 GM (MIRALAX) PACK PO SCH (21:33)
[2022-06-18 00:19] VITALS: BP 127/69
[2022-06-18 04:10] VITALS: BP 126/57
[2022-06-18] MEDS: CATHETER FLUSH 10 ML SYR IVP SCH (05:44)
[2022-06-18] MEDS: methylPREDNISolone 40 MG/ML (Solu-MEDROL) VIAL IV SCH (05:44)
[2022-06-18 06:20] LABS: BASOPHILS # (AUTO) 0.1 10^3/uL (0.0-0.1); BASOPHILS % (AUTO) 0 % (0-10); EOSINOPHILS % (AUTO) 0 % (0-10); HEMATOCRIT 38 % (40-54); HEMOGLOBIN 12.9 g/dL (13.3-17.7); LYMPHOCYTES # (AUTO) 1.9 10^3/uL (1.0-4.0); LYMPHOCYTES % (AUTO) 7 % (12-44); MEAN CORPUSCULAR HEMOGLOBIN 32 pg (25-34); MEAN CORPUSCULAR HGB CONC 34 g/dL (32-36); MEAN CORPUSCULAR VOLUME 93 fL (80-99); MEAN PLATELET VOLUME 11.9 fL (9.0-12.2); MONOCYTES # (AUTO) 1.1 10^3/uL (0.0-1.0); MONOCYTES % (AUTO) 4 % (0-12); NEUTROPHILS # (AUTO) 22.4 10^3/uL (1.8-7.8); NEUTROPHILS % (AUTO) 84 % (42-75); PLATELET COUNT 385 10^3/uL (130-400); WHITE BLOOD COUNT 26.6 10^3/uL (4.3-11.0)
[2022-06-18 06:36] LABS: ALBUMIN 3.4 GM/DL (3.2-4.5); BILIRUBIN,TOTAL 0.3 MG/DL (0.1-1.0); CALCIUM 9.2 MG/DL (8.5-10.1); CREATININE SERUM 0.72 MG/DL (0.60-1.30); POTASSIUM 4.4 MMOL/L (3.6-5.0); TOTAL PROTEIN 7.4 GM/DL (6.4-8.2)
[2022-06-18 07:32] LABS: BAND NEUTROPHILS 6 %; LYMPHOCYTES % (MANUAL) 11 %; METAMYELOCYTES % 4 %; MONOCYTES % (MANUAL) 6 %; NEUTROPHILS % (MANUAL) 76 %; PLATELET ESTIMATE ADEQUATE
[2022-06-18 07:33] LABS: POLYCHROMASIA SLIGHT
[2022-06-18 08:19] VITALS: BP 127/73
[2022-06-18] MEDS: SENNA W/DOCUSATE (SENOKOT S) TABLET PO SCH (09:00)
[2022-06-18] MEDS: polyethylene glycoL POWDER 17 GM (MIRALAX) PACK PO SCH (09:00)
[2022-06-18] MEDS ORDERED: AMOX1TAB12 PO (09:50)
[2022-06-18] MEDS ORDERED: PRED10TA22 PO (09:50)
--- NOTE | 2022-06-18 09:51 | Discharge Summary ---
Discharge Summary Hospital Course Was the Problem List Reviewed?: Yes Problems/Dx: (1) Polyarthritis Status: Acute Hospital Course Date of Admission: Jun 16, 2022 at 17:49 Admission Diagnosis : Family Physician/Provider: [place] Date of Discharge: 06/18/22 Discharge Diagnosis: [ ] Hospital Course: Uneventful course after admitted for acute inflammatory arthritis causing patient immobility so all labs drawn to eval for autoimmune arthritis and patient was given IV steroids with good results. Abx given for hand cellulitis and patient was deemed stable for DC on steroid taper and close f/u with [facility] to evaluate cause of arthritis. Labs and Pending Lab Test: Laboratory Tests 06/18/22 05:50: White Blood Count 26.6H, Red Blood Count 4.07L, Hemoglobin 12.9L, Hematocrit 38L , Mean Corpuscular Volume 93, Mean Corpuscular Hemoglobin 32, Mean Corpuscular Hemoglobin Concent 34, Red Cell Distribution Width 12.4, Platelet Count 385, Mean Platelet Volume 11.9, Immature Granulocyte % (Auto) 4, Neutrophils (%) (Auto) 84H, Lymphocytes (%) (Auto) 7L, Monocytes (%) (Auto) 4, Eosinophils (%) (Auto) 0, Basophils (%) (Auto) 0, Neutrophils # (Auto) 22.4H, Lymphocytes # (Aut o) 1.9, Monocytes # (Auto) 1.1H, Eosinophils # (Auto) 0.0, Basophils # (Auto) 0.1, Immature Granulocyte # (Auto) 1.0H, Neutrophils % (Manual) 76, Lymphocytes % (Manual) 11, Monocytes % (Manual) 6, Metamyelocytes % 4, Band Neutrophils 6, Platelet Estimate ADEQUATE, Polychromasia SLIGHT, Basophilic Stippling SLIGHT, Sodium Level 135, Potassium Level 4.4, Chloride Level 104, Carbon Dioxide Level 21, Anion Gap 10, Blood Urea Nitrogen 11, Creatinine 0.72, Estimat Glomerular Filtration Rate 127, BUN/Creatinine Ratio 15, Glucose Level 254H, Calcium Level 9.2, Corrected Calcium 9.7, Total Bilirubin 0.3, Aspartate Amino Transf (AST/SGOT) 57H, Alanine Aminotransferase (ALT/SGPT) 103H, Alkaline Phosphatase 114, Total Protein 7.4, Albumin 3.4 Microbiology 06/16/22 Blood Culture - Preliminary, Resulted No growth Home Meds Active Reported Tylenol Extra Strength (Acetaminophen) 500 Mg Tablet 1,000 Mg PO Q8H PRN TAKES 2 (500MG) TABS Meloxicam 7.5 Mg Tablet 7.5 Mg PO BID Assessment/Pt Instructions PCP 1 week for arthritis lab w/u results Discharge Planning: <30 minutes discharge planning Discharge Physical Examination Vital Signs Vital Signs Date Time Temp Pulse Resp B/P (MAP) Pulse Ox O2 Delivery O2 Flow Rate FiO2 06/18/22 08:19 36.5 69 18 127/73 (91) 98 Room Air General Appearance: No Apparent Distress, WD/WN Allergies: Coded Allergies: No Known Drug Allergies (Unverified , 07/06/19) Discharge Summary Date of Admission Jun 16, 2022 at 17:49 Date of Discharge Discharge Date: Jun 18, 2022 Admission Diagnosis Acute severe polyarthralgia inflammatory type unable to ambulate FRANKIE AYALA DO Jun 18, 2022 09:50
[2022-06-18 11:35] VITALS: BP 127/73
[2022-06-18] MEDS ORDERED: ENOXAPARIN 40 MG/0.4 ML (LOVENOX) SYR SC SCH (20:00)
== END 2022-06-18 11:35 | disposition home or self-care (01) ==
LOC: EDUNIT# 13:56 → ER 14:01 → 4TH 17:49 → UNDOADMOB 17:49 → 4TH 17:59 → UNDODISOB 06-18 11:35
PROVIDERS: ADMIT Internal Medicine; ATTEND Internal Medicine
DX: M06.4 Inflammatory polyarthropathy (principal); D72.829 Elevated white blood cell count, unspecified; R73.03 Prediabetes; F17.210 Nicotine dependence, cigarettes, uncomplicated
CPT/HCPCS: 36415; 80053; 83605; 84550; 85007; 85025; 85027; 85652; 86038; 86039; 86141; 86200; 86235; 86431; 87040; 96366; 96372; 96376; G0378